=== PATIENT | female | born 1980 | race African-American/Black ===

== ENCOUNTER 2016-12-29 05:33 | Day surgery (SDC) | payer MEDICAID ==
[2016-12-26 09:20] LABS: HEMATOCRIT 36.9 % (36.0-47.0); HEMOGLOBIN 12.2 g/dL (12.0-15.5); HGB HCT DIFFERENCE -0.3; MEAN CORPUSCULAR HEMOGLOBIN 30.1 pg (27.0-33.4); MEAN CORPUSCULAR VOLUME 91 fl (80-97); RED BLOOD COUNT 4.05 10^6/uL (3.72-5.28); WHITE BLOOD COUNT 6.8 10^3/uL (4.0-10.5)
--- NOTE | 2016-12-26 11:02 | EKG REPORT ---
SEVERITY:- NORMAL ECG - SINUS RHYTHM : Confirmed by: Gris Arteaga 26-Dec-2016 11:01:42
[~2016-12-29 05:33] MED LIST: CLINDAMYCIN 900 MG/D5W RTU 50 ML IV PRN; GENTAMICIN SULFATE 100 MG in DEXTROSE 5%-WATER 100.0 ML IV PRN; NORMAL SALINE IV PRN
[2016-12-29] MEDS ORDERED: MIDAZOLAM 2 MG/2 ML INJ ONE (07:00)
[2016-12-29] MEDS ORDERED: EPHEDRINE SULFATE INJ 50 MG/1 ML AMPULE ONE (07:00)
[2016-12-29] MEDS ORDERED: FENTANYL CITRATE INJ/PF 100 MCG/2 ML AMPUL ONE ×2 (07:00→07:01)
[2016-12-29] MEDS ORDERED: PROPOFOL INJ 200 MG/20 ML VIAL IV ONE (07:01)
[2016-12-29] MEDS ORDERED: DEXMEDETOMIDINE INJ 80 MCG/20 ML VIAL IV ONE (07:01)
[2016-12-29] MEDS ORDERED: ACETAMINOPHEN 100 ML IV ONE (07:01)
[2016-12-29] MEDS ORDERED: LIDOCAINE 1%/EPINEPHRINE INJ 20 ML VIAL ONE (07:27)
[2016-12-29] MEDS ORDERED: FENTANYL CITRATE INJ/PF 100 MCG/2 ML AMPUL IV PRN ×3 (07:48)
[2016-12-29] MEDS ORDERED: PROMETHAZINE HCL INJ 25 MG/1 ML VIAL IV PRN (07:48)
[2016-12-29] MEDS ORDERED: DIPHENHYDRAMINE HCL 50 MG/ML VIAL IV PRN (07:48)
[2016-12-29] MEDS ORDERED: MORPHINE SULFATE 10 MG/ML INJ IV PRN (07:48)
[2016-12-29] MEDS ORDERED: MEPERIDINE HCL/PF INJ 25 MG/1 ML DISP.SYRIN IV PRN (07:48)
[2016-12-29] MEDS ORDERED: ONDANSETRON HCL INJ/PF 4 MG/2 ML SDV IV PRN (07:48)
[2016-12-29] MEDS ORDERED: OXYCODONE-ACETAMINOPHEN 5-325 MG TABLET PO PRN (09:34)
[2016-12-29] MEDS ORDERED: IBUPROFEN 800 MG TABLET PO PRN (09:34)
[2016-12-29] MEDS ORDERED: MORPHINE SULFATE 10 MG/ML INJ IM PRN (09:35)
--- NOTE | 2016-12-29 09:38 | OPERATIVE REPORT E ---
Operative Report NAME: ROSE MARIE BLANKENSHIP : 1980 AGE: 36Y DATE OF SURGERY: 12/29/2016 ROOM: PREOPERATIVE DIAGNOSIS: Endometriomas x2. POSTOPERATIVE DIAGNOSIS: Endometriomas x2. PROCEDURE: Surgical excision of bilateral endometriomas. SURGEON: COLLETTE BOUCHER M.D. ANESTHESIA: Dr. Beard with general. FINDINGS: There was a 5 cm well circumscribed subcutaneous endometrioma and incorporating the fascia. Clear serosanguineous cyst ruptured during the procedure. This was on the right. On the left, there was a 2 cm circumscribed chocolate cyst consistent with endometrioma, subcutaneous and incorporating the fascia as well. ESTIMATED BLOOD LOSS: 20 mL. SPECIMENS REMOVED: Endometriomas x2. PROCEDURE IN DETAIL: The patient was taken to the operating room, prepared and draped in a normal sterile fashion in a supine position. Approximately 7 mL of lidocaine 1% with epinephrine was injected into both surgical areas. Beginning with the right cyst which was larger, the scalpel was used to excise the skin along the scar and the cyst was palpable through the subcutaneous tissues and this was excised sharply with Chriss and Tara as well as A small amount of blunt dissection. Switched back to the scalpel as there was difficulty with the scar tissue excising with the scissors and at this point, the endometrioma did rupture. This was copiously irrigated and suctioned away. The rest of the cyst was then dissected out following the planes. Scar tissue was very dense, making the excision difficult. Once the endometrioma was free using the sharp dissection of the Banerjee, the rest of the cyst wall was then noted to be a small amount still remaining. This was excised using Banerjee as well until the cyst wall was completed removed. The defect in the fascia was then reapproximated with interrupted sutures of 0 Vicryl and the skin was then closed with 4-0 Vicryl. Attention was then turned to the other cyst on the left and skin incision was made again with a scalpel and the cyst was located using palpation. The cyst was then dissected out sharply with Chriss and Tara. The chocolate cyst unfortunately also ruptured on this side and this was also copiously irrigated and suctioned away. The rest of the cyst wall was removed using Chriss. Once this was removed, the defect in the fascia was then closed with 0 Vicryl once more. The skin was then closed at the cyst incision with 4-0 Vicryl. The patient tolerated the procedure well. Sponge, lap, and needle counts were correct x2. The patient was taken to recovery in stable condition. DICTATING PHYSICIAN: COLLETTE BOUCHER M.D. [id number] PHY#: [id number] ID: [id number] JOB#: [id number] ACCT: [id number] cc:COLLETTE BOUCHER M.D. >
[2016-12-29 11:38] VITALS: BP 109/74
[2016-12-29] MEDS ORDERED: ONDANSETRON HCL INJ/PF 4 MG/2 ML SDV ONE (14:34)
[2016-12-29] MEDS ORDERED: KETOROLAC TROMETHAMINE 60 MG/2 ML SDV ONE (14:34)
[2016-12-29] MEDS ORDERED: METOCLOPRAMIDE HCL INJ/PF 10 MG/2 ML SDV ONE (14:34)
[2016-12-29] MEDS ORDERED: LIDOCAINE 2% INJ-PF (20 MG/ML) 10 ML AMPUL ONE (14:34)
== END 2016-12-29 11:30 | disposition home or self-care (01) ==
LOC: OROUT 05:33
PROVIDERS: ATTEND Obstetrics & Gynecology
PROC: 0JB80ZX Excision of Abdomen Subcutaneous Tissue and Fascia, Open Approach, Diagnostic (ICD-10-PCS; principal; 2016-12-29 07:30)
DX: N80.9 Endometriosis, unspecified (principal); L72.8 Other follicular cysts of the skin and subcutaneous tissue; E11.9 Type 2 diabetes mellitus without complications; Z79.4 Long term (current) use of insulin; Z88.0 Allergy status to penicillin
CPT/HCPCS: 93005; 36415; 82962; 85027; 81025; 88305 ×2; 93010; 22900; J2250; J3490 ×4; J1885; J3010; J1580; J2765; J2405; J2704; J0131; 802

== ENCOUNTER 2017-02-22 11:04 | Emergency (ER) | payer MEDICAID ==
[2017-02-22 11:25] VITALS: BP 106/78
--- NOTE | 2017-02-22 12:16 | ER Document Report ---
HPI - HPI Patient complains to provider of: skin complaint Pain Level: 0 Context: He is a 36-year-old female presents emergency Department complaining of dry skin. Patient states that she's a couple spots on her skin for about a month that come and go. she uses Dial hand soap and does not use a moisturizer. She denies any new detergents or anything like that. She states that they're nonpainful, remain the same in size until they heal her go away. Not draining. Past medical history significant for type I diabetes on insulin, endometriosis. PCP is Alex - REPRODUCTIVE Reproductive: DENIES: : - DERM Skin Color: Normal Past Medical History - Social History Smoking Status: Current Every Day Smoker Family History: Reviewed & Not Pertinent Patient has suicidal ideation: No Patient has homicidal ideation: No - Past Medical History Cardiac Medical History: Denies: Hx Coronary Artery Disease, Hx Heart Attack, Hx Hypertension Pulmonary Medical History: Denies: Hx Asthma, Hx Bronchitis, Hx COPD, Hx Pneumonia Neurological Medical History: Denies: Hx Cerebrovascular Accident, Hx Seizures Endocrine Medical History: Reports: Hx Diabetes Mellitus Type 1 Renal/ Medical History: Denies: Hx Peritoneal Dialysis GI Medical History: Reports: Hx Gastritis. Denies: Hx Hepatitis, Hx Hiatal Hernia, Hx Ulcer Musculoskeltal Medical History: Denies Hx Arthritis Psychiatric Medical History: Reports: Hx Depression Infectious Medical History: Denies: Hx Hepatitis Past Surgical History: Reports: Hx Section, Hx Gynecologic Surgery - colpo, Hx Tubal Ligation. Denies: Hx Hysterectomy, Hx Mastectomy, Hx Open Heart Surgery, Hx Pacemaker - Immunizations Immunizations up to date: Yes Hx Diphtheria, Pertussis, Tetanus Vaccination: Yes Vertical Provider Document - CONSTITUTIONAL Agree With Documented VS: Yes Exam Limitations: No Limitations General Appearance: WD/WN, No Apparent Distress - INFECTION CONTROL TRAVEL OUTSIDE OF THE [place] IN LAST 30 DAYS: No - RESPIRATORY O2 Sat by Pulse Oximetry: 100 - DERM Integumentary: Warm, Dry - evidence of dry spots covered with makeup Course - Re-evaluation Re-evalutation: 02/22/17 12:17 Patient complaint today is related to dry skin due to current skin carotene. Patient educated on use of proper skin care products that are available any over -the-counter drugstore. Patient expressed understanding and is stable for discharge. - Vital Signs Vital signs: Temp Pulse Resp BP Pulse Ox 98.3 F 88 14 106/78 100 02/22/17 11:23 02/22/17 11:23 02/22/17 11:23 02/22/17 11:23 02/22/17 11:23 Discharge - Discharge Clinical Impression: Dry skin Condition: Good Disposition: HOME, SELF-CARE Additional Instructions: Your complaint today is related to your current skincare routine. Stop using Dial hand soap Please be sure to use specific facial cleanser followed by facial moisturizer daily. Any other soaps are to harsh for your facial skin. Referrals: JOSE D BUCKLEY MD [ACTIVE STAFF] - Follow up as needed
== END 2017-02-22 12:16 | disposition home or self-care (01) ==
LOC: ER 11:04
DX: L85.3 Xerosis cutis (principal); R21 Rash and other nonspecific skin eruption; F17.200 Nicotine dependence, unspecified, uncomplicated
CPT/HCPCS: 99282

== ENCOUNTER 2017-06-27 22:07 | Observation (INO) | payer MEDICAID ==
[2017-06-28 00:41] LABS: ABSOLUTE LYMPHOCYTES (AUTO) 0.5 10^3/uL (0.5-4.7); ABSOLUTE MONOCYTES (AUTO) 0.2 10^3/uL (0.1-1.4); BASOPHILS % (AUTO) 0.3 % (0-2); EOSINOPHILS % (AUTO) 0.1 % (0-6); HEMATOCRIT 41.7 % (36.0-47.0); HGB HCT DIFFERENCE 0.3; LYMPHOCYTES % (AUTO) 5.5 % (13-45); MEAN CORPUSCULAR HEMOGLOBIN 31.2 pg (27.0-33.4); MEAN CORPUSCULAR HGB CONC 33.5 g/dL (32.0-36.0); MEAN CORPUSCULAR VOLUME 93 fl (80-97); MONOCYTES % (AUTO) 2.1 % (3-13); RED BLOOD COUNT 4.48 10^6/uL (3.72-5.28); RED CELL DISTRIBUTION WIDTH 13.7 % (11.5-14.0); WHITE BLOOD COUNT 9.8 10^3/uL (4.0-10.5)
[2017-06-28 00:58] LABS: ALANINE AMINOTRANSFERASE 26 U/L (9-52); ALKALINE PHOSPHATASE 118 U/L (38-126); ASPARTATE AMINO TRANSFERASE 28 U/L (14-36); BILIRUBIN,DIRECT 0.4 mg/dL (0.0-0.4); BILIRUBIN,TOTAL 0.9 mg/dL (0.2-1.3); BLOOD UREA NITROGEN 20 mg/dL (7-20); CALCIUM 9.8 mg/dL (8.4-10.2)
[2017-06-28] MEDS ORDERED: NORMAL SALINE 1000 ML 2,000 ML IV ONE (00:59)
[2017-06-28] MEDS ORDERED: ONDANSETRON HCL INJ/PF 4 MG/2 ML SDV IV ONE (01:00)
[2017-06-28 01:01] LABS: LIPASE < 10.0 U/L (23-300)
--- NOTE | 2017-06-28 01:07 | ER Document Report ---
ED General - General Chief Complaint: Nausea/Vomiting/Diarrhea Stated Complaint: VOMITING Time Seen by Provider: 06/28/17 00:36 Cannot obtain history due to: Uncooperative, Altered mental status Notes: Patient is a 37-year-old female with past medical history of insulin-dependent diabetes who presents with 12 hours of nausea, vomiting and diarrhea as well as lethargy. Patient is a very difficult historian time of arrival stating that hurts to talk and is unwilling to provide many details of what resulted in her come to the emergency department today. Her boyfriend at the bedside states that she did discontinue her insulin pump 3 days ago but had still been administering herself insulin. Patient does have a prior history of DKA and states that this often presents with symptoms similar to today. She has not seen a primary care doctor regarding today's concerns. TRAVEL OUTSIDE OF THE [place] IN LAST 30 DAYS: No - Related Data Allergies/Adverse Reactions: Penicillins Allergy (Mild, Verified 06/27/17 23:27) rash Past Medical History - General Information source: Patient - Social History Smoking Status: Never Smoker Frequency of alcohol use: None Drug Abuse: None Lives with: Spouse/Significant other Family History: Reviewed & Not Pertinent - Past Medical History Cardiac Medical History: Denies: Hx Coronary Artery Disease, Hx Heart Attack, Hx Hypertension Pulmonary Medical History: Denies: Hx Asthma, Hx Bronchitis, Hx COPD, Hx Pneumonia Neurological Medical History: Denies: Hx Cerebrovascular Accident, Hx Seizures Endocrine Medical History: Reports: Hx Diabetes Mellitus Type 1 Renal/ Medical History: Denies: Hx Peritoneal Dialysis GI Medical History: Reports: Hx Gastritis. Denies: Hx Hepatitis, Hx Hiatal Hernia, Hx Ulcer Musculoskeltal Medical History: Denies Hx Arthritis Psychiatric Medical History: Reports: Hx Depression Infectious Medical History: Denies: Hx Hepatitis Past Surgical History: Reports: Hx Section, Hx Gynecologic Surgery - colpo, Hx Tubal Ligation. Denies: Hx Hysterectomy, Hx Mastectomy, Hx Open Heart Surgery, Hx Pacemaker - Immunizations Immunizations up to date: Yes Hx Diphtheria, Pertussis, Tetanus Vaccination: Yes Review of Systems - Review of Systems Notes: Constitutional: Negative for fever. HENT: Negative for sore throat. Eyes: Negative for visual changes. Cardiovascular: Negative for chest pain. Respiratory: Negative for shortness of breath. Gastrointestinal: Positive for abdominal pain, vomiting, diarrhea Genitourinary: Negative for dysuria. Musculoskeletal: Negative for back pain. Skin: Negative for rash. Neurological: Negative for headaches, weakness or numbness. 10 point ROS negative except as marked above and in HPI. Physical Exam - Vital signs Vitals: Temp Pulse Resp BP Pulse Ox 98.0 F 103 H 16 133/87 H 99 06/27/17 23:28 06/27/17 23:28 06/27/17 23:28 06/27/17 23:28 06/27/17 23:28 Interpretation: Tachycardic Notes: PHYSICAL EXAMINATION: GENERAL: Somewhat lethargic but does respond to questions when pressed. GCS 15. HEAD: Atraumatic, normocephalic. EYES: Pupils equal round and reactive to light, extraocular movements intact, sclera anicteric, conjunctiva are normal. ENT: nares patent, oropharynx clear without exudates. Dry mucous membranes. NECK: Normal range of motion, supple without lymphadenopathy LUNGS: Breath sounds clear to auscultation bilaterally and equal. No wheezes rales or rhonchi. HEART: Regular tachycardia without murmurs ABDOMEN: Soft, diffuse mild tenderness without any focal rebound or guarding, normoactive bowel sounds. No guarding, no rebound. No masses appreciated. EXTREMITIES: Normal range of motion, no pitting or edema. No cyanosis. NEUROLOGICAL: No focal neurological deficits. Moves all extremities spontaneously and on command. PSYCH: Normal mood, normal affect. SKIN: Warm, Dry, normal turgor, no rashes or lesions noted. Course - Re-evaluation Re-evalutation: 06/28/17 01:05 Patient presents ill in appearance, tachycardic, with vomiting and diarrhea. She is lethargic but does respond to questions. No focal abdominal tenderness. Appears clinically dehydrated. High level of concern for DKA in the setting of vomiting and diarrhea. Given her depressed mental status, tachycardia, high level of concern for DKA she is critical at this time and will require frequent reassessments 0125-patient has had an additional episode of vomiting. She continues to appear ill, somewhat lethargic but continues respond appropriate questions. 06/28/17 01:48 Patient's labs do demonstrate findings consistent with acute DKA. She remains lethargic but does respond to questions. She remains mildly tachycardic current heart rate of 103. No hypotension. Will initiate insulin infusion 0.14 U/kg/h. Patient has received 2 L IV fluids and a third will be ordered. Her potassium is at a range will I will begin potassium infusion at the same time of insulin infusion. She will require admission to the hospital. I have paged Dr. Johnson for admission. Will continue to monitor closely 06/28/17 02:24 I discussed this case with Dr. Johnson who agrees to admit the patient. On reassessment she continues to be somewhat lethargic but is talking more appropriately. Will continue to reassess 06/28/17 03:36 Heart rate is improving. Rate 93 at this time. Patient continues respond to questions appropriately. Will transfer to the floor shortly - Vital Signs Vital signs: Temp Pulse Resp BP Pulse Ox 98.0 F 103 H 11 L 131/86 H 100 06/27/17 23:28 06/27/17 23:28 06/28/17 02:33 06/28/17 02:33 06/28/17 02:33 - Laboratory Result Diagrams: 06/28/17 00:26 06/28/17 00:26 Laboratory results interpreted by me: 06/27/17 06/28/17 06/28/17 23:31 00:26 00:26 Seg Neutrophils % 92.0 H Lymphocytes % 5.5 L Monocytes % 2.1 L Absolute Neutrophils 9.0 H VBG pH Carbon Dioxide 21 L Anion Gap 20 H Glucose 406 H* POC Glucose 379 H Total Protein 9.0 H Lipase < 10.0 L Urine Glucose (UA) Urine Ketones Urine Ascorbic Acid 06/28/17 06/28/17 06/28/17 00:46 01:25 02:27 Seg Neutrophils % Lymphocytes % Monocytes % Absolute Neutrophils VBG pH 7.26 L Carbon Dioxide Anion Gap Glucose POC Glucose 334 H Total Protein Lipase Urine Glucose (UA) 150 H Urine Ketones 80 H Urine Ascorbic Acid 20 H Critical Care Note - Critical Care Note Total time excluding time spent on procedures (mins): 38 Comments: Critical care time spent obtaining history from patient or surrogate, discussions with consultants, development of treatment plan with patient or surrogate, evaluation of patient's response to treatment, examination of patient , ordering and performing treatments and interventions, ordering and review of laboratory studies, re-evaluation of patient's condition, ordering and review of radiographic studies and review of old charts Discharge - Discharge Clinical Impression: Diabetic ketoacidosis Qualifiers: Diabetes mellitus type: type 1 Diabetes mellitus complication detail: without coma Qualified Code(s): E10.10 - Type 1 diabetes mellitus with ketoacidosis without coma Nausea and vomiting Qualifiers: Vomiting type: unspecified Vomiting Intractability: intractable Qualified Code( s): R11.2 - Nausea with vomiting, unspecified Condition: Fair Disposition: ADMITTED INPATIENT Admitting Provider: Ryanmn Unit Admitted: [facility]
[2017-06-28 01:08] LABS: CARBON DIOXIDE 21 mmol/L (22-30); CHLORIDE 101 mmol/L (98-107); POTASSIUM 4.5 mmol/L (3.6-5.0); SODIUM 142.4 mmol/L (137-145)
[2017-06-28 01:24] LABS: ANION GAP 20 (5-19)
[2017-06-28 01:33] LABS: APPEARANCE,URINE CLEAR; BILIRUBIN,URINE NEGATIVE (NEGATIVE); GLUCOSE, URINE 150 mg/dL (NEGATIVE); KETONES,URINE 80 mg/dL (NEGATIVE); LEUKOCYTE ESTERASE,URINE NEGATIVE (NEGATIVE); NITRITE,URINE NEGATIVE (NEGATIVE); PROTEIN,URINE NEGATIVE (NEGATIVE); URINE SPECIFIC GRAVITY 1.034; UROBILINOGEN,URINE NEGATIVE mg/dL (<2.0)
[2017-06-28 01:33] LABS: VENOUS BLOOD BASE EXCESS -4.9 mmol/L; VENOUS BLOOD HCO3 22.6 mmol/L (20-32); VENOUS BLOOD PCO2 51.7 mmHg (35-63); VENOUS BLOOD PH 7.26 (7.30-7.42)
[2017-06-28] MEDS ORDERED: INSULIN REG, HUMAN 100 UNIT/ML 3 ML VIAL (PYX) IV ONE (01:47)
[2017-06-28] MEDS ORDERED: POTASSI CL 20 MEQ/50 ML RIDER 50 ML IV ONE (01:47)
[2017-06-28] MEDS ORDERED: NORMAL SALINE 1000 ML 1,000 ML IV ONE (01:47)
[2017-06-28] MEDS ORDERED: DEXTROSE 50%-WATER SYRINGE 25 GM/50 ML DOSE IV PRN ×2 (05:35→10:06)
[2017-06-28] MEDS ORDERED: INSULIN, REGULAR 100 UNIT/100 ML NORMAL SALINE IV PRN ×2 (05:35)
[2017-06-28] MEDS ORDERED: GLUCAGON,HUMAN RECOMB 1 MG INJ IM PRN ×2 (05:35→10:06)
[2017-06-28] MEDS ORDERED: DEXTROSE 40% GEL 15 GM TUBE PO PRN ×2 (05:35→10:06)
[2017-06-28] MEDS ORDERED: DEXTROSE 50%-WATER SYRINGE 12.5 GM/25 ML DOSE IV PRN ×2 (05:35→10:06)
[2017-06-28] MEDS ORDERED: DEXTROSE 40% GEL 15 GM TUBE X 2 PO PRN ×2 (05:35→10:06)
[2017-06-28] MEDS ORDERED: DEXTROSE 5%-1/2 NORMAL SALINE 1,000 ML IV PRN (05:37)
[2017-06-28 07:47] LABS: ALANINE AMINOTRANSFERASE 23 U/L (9-52); ALBUMIN 3.6 g/dL (3.5-5.0); ALKALINE PHOSPHATASE 91 U/L (38-126); ANION GAP 10 (5-19); ASPARTATE AMINO TRANSFERASE 16 U/L (14-36); BILIRUBIN,DIRECT 0.3 mg/dL (0.0-0.4); BILIRUBIN,TOTAL 0.6 mg/dL (0.2-1.3); BLOOD UREA NITROGEN 18 mg/dL (7-20); CALCIUM 8.5 mg/dL (8.4-10.2); CARBON DIOXIDE 20 mmol/L (22-30); CHLORIDE 111 mmol/L (98-107); CREATININE RESULT 0.59 mg/dL (0.52-1.25); GLUCOSE 159 mg/dL (75-110); SODIUM 141.1 mmol/L (137-145); TOTAL PROTEIN 6.5 g/dL (6.3-8.2)
[2017-06-28] MEDS ORDERED: ONDANSETRON HCL INJ/PF 4 MG/2 ML SDV ONE (09:48)
[2017-06-28] MEDS ORDERED: ONDANSETRON HCL INJ/PF 4 MG/2 ML SDV IV PRN (10:04)
[2017-06-28] MEDS ORDERED: INSULIN GLARGINE HUM REC ANLOG 20 UNIT SUBCUT SCH (11:00)
[2017-06-28 11:20] LABS: ALANINE AMINOTRANSFERASE 24 U/L (9-52); ALBUMIN 3.6 g/dL (3.5-5.0); ALKALINE PHOSPHATASE 87 U/L (38-126); ANION GAP 9 (5-19); ASPARTATE AMINO TRANSFERASE 15 U/L (14-36); BILIRUBIN,DIRECT 0.2 mg/dL (0.0-0.4); BILIRUBIN,TOTAL 0.5 mg/dL (0.2-1.3); BLOOD UREA NITROGEN 17 mg/dL (7-20); CALCIUM 8.6 mg/dL (8.4-10.2); CARBON DIOXIDE 23 mmol/L (22-30); CHLORIDE 108 mmol/L (98-107); CREATININE RESULT 0.58 mg/dL (0.52-1.25); GLUCOSE 101 mg/dL (75-110); POTASSIUM 3.9 mmol/L (3.6-5.0); SODIUM 139.7 mmol/L (137-145); TOTAL PROTEIN 6.6 g/dL (6.3-8.2)
[2017-06-28] MEDS: INSULIN LISPRO 100 UNIT/ML 3 ML VIAL SUBCUT PRN ×3 (13:33→21:48)
[2017-06-28] MEDS ORDERED: INSULIN GLARGINE,HUM.REC.ANLOG 1,000 UNIT/10 ML UNIT SUBCUT ONE (13:35)
[2017-06-28 15:04] LABS: ALANINE AMINOTRANSFERASE 19 U/L (9-52); ALBUMIN 3.6 g/dL (3.5-5.0); ALKALINE PHOSPHATASE 83 U/L (38-126); ANION GAP 14 (5-19); ASPARTATE AMINO TRANSFERASE 15 U/L (14-36); BILIRUBIN,DIRECT 0.3 mg/dL (0.0-0.4); BILIRUBIN,TOTAL 0.6 mg/dL (0.2-1.3); BLOOD UREA NITROGEN 17 mg/dL (7-20); CALCIUM 8.5 mg/dL (8.4-10.2); CARBON DIOXIDE 20 mmol/L (22-30); CHLORIDE 105 mmol/L (98-107); CREATININE RESULT 0.63 mg/dL (0.52-1.25); GLUCOSE 190 mg/dL (75-110); SODIUM 138.6 mmol/L (137-145); TOTAL PROTEIN 6.4 g/dL (6.3-8.2)
--- NOTE | 2017-06-28 16:12 | PDOC H&P ---
History of Present Illness Admission Date/PCP: 06/28/17 05:11 History of Present Illness: ROSE MARIE BLANKENSHIP is a 37 year old female, She has type 1 diabetes mellitus, she was on insulin pump, she came to emergency room for evaluation of lethargy, vomiting, abdominal pain, in the emergency room she was found to be in diabetic ketoacidosis.The venous pH was 7.26, anion gap was 20 Past Medical History Endocrine Medical History: Reports: Diabetes Mellitus Type 1 Psychiatric Medical History: Reports: Depression Hematology: Reports: Anemia - with /no meds Past Surgical History Past Surgical History: Reports: 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, Section , Tubal Ligation Social History Lives with: Spouse/Significant other Smoking Status: Smoker,Current Status Unk Frequency of Alcohol Use: Occasional Hx Recreational Drug Use: No Drugs: Marijuana Hx Prescription Drug Abuse: No Family History Family History: Reviewed & Not Pertinent Parental Family History Reviewed: Yes Children Family History Reviewed: Yes Sibling(s) Family History Reviewed.: Yes Medication/Allergy Home Medications: Insulin Glargine,Hum.rec.anlog [Lantus] 20 units SUBCUT QAM 09/23/11 Insulin Aspart [Novolog Flexpen] 0 unit SUBCUT .SLD SCALE 06/28/17 Allergies/Adverse Reactions: Penicillins Allergy (Mild, Verified 06/27/17 23:27) rash Review of Systems Constitutional: ABSENT: chills, fever(s), headache(s), weight gain, weight loss Eyes: ABSENT: visual disturbances Ears: ABSENT: hearing changes Cardiovascular: ABSENT: chest pain, dyspnea on exertion, edema, orthropnea, palpitations Respiratory: ABSENT: cough, hemoptysis Gastrointestinal: PRESENT: diarrhea, vomiting Genitourinary: ABSENT: dysuria, hematuria Musculoskeletal: ABSENT: joint swelling Integumentary: ABSENT: rash, wounds Neurological: PRESENT: confusion Psychiatric: ABSENT: anxiety, depression, homidical ideation, suicidal ideation Endocrine: ABSENT: cold intolerance, heat intolerance, menstrual abnormalities, polydipsia, polyuria Hematologic/Lymphatic: ABSENT: easy bleeding, easy bruising, lymphadenopathy Physical Exam Vital Signs: Temp Pulse Resp BP Pulse Ox 98.7 F 102 H 18 98/60 L 100 06/28/17 14:56 06/28/17 14:56 06/28/17 14:56 06/28/17 14:56 06/28/17 14:56 Intake & Output 06/27/17 06/28/17 06/29/17 06:59 06:59 06:59 Intake Total 158 500 Output Total 0 Balance 158 500 General appearance: PRESENT: no acute distress Head exam: PRESENT: atraumatic, normocephalic Eye exam: PRESENT: conjunctiva pink, EOMI, PERRLA Ear exam: PRESENT: normal external ear exam Mouth exam: PRESENT: moist, tongue midline Neck exam: PRESENT: full ROM Respiratory exam: PRESENT: clear to auscultation lata Cardiovascular exam: PRESENT: RRR, +S1, +S2 Vascular exam: PRESENT: normal capillary refill GI/Abdominal exam: PRESENT: normal bowel sounds, soft Rectal exam: PRESENT: deferred Neurological exam: PRESENT: alert, CN II-XII grossly intact Psychiatric exam: PRESENT: appropriate affect, normal mood Skin exam: PRESENT: dry, intact, warm. ABSENT: cyanosis, rash Results Laboratory Results: 06/28/17 13:50 06/28/17 06/28/17 06/28/17 06:42 10:26 13:50 Sodium 141.1 139.7 138.6 Potassium 4.0 3.9 4.0 Chloride 111 H 108 H 105 Carbon Dioxide 20 L 23 20 L Anion Gap 10 9 14 BUN 18 17 17 Creatinine 0.59 0.58 0.63 Est GFR ( Amer) > 60 > 60 > 60 Est GFR (Non-Af Amer) > 60 > 60 > 60 Glucose 159 H 101 190 H Calcium 8.5 8.6 8.5 Total Bilirubin 0.6 0.5 0.6 AST 16 15 15 ALT 23 24 19 Alkaline Phosphatase 91 87 83 Total Protein 6.5 6.6 6.4 Albumin 3.6 3.6 3.6 Assessment & Plan - Diagnosis (1) Diabetic ketoacidosis Qualifiers: Diabetes mellitus type: type 1 Diabetes mellitus complication detail: without coma Qualified Code(s): E10.10 - Type 1 diabetes mellitus with ketoacidosis without coma Is this a current diagnosis for this admission?: YesPlan: She is admitted for the management of DKA. She is on insulin drip, IV fluids with normal saline, insulin drip will continue until the anion gap is less than 12
[2017-06-28 19:12] LABS: ALANINE AMINOTRANSFERASE 20 U/L (9-52); ALBUMIN 3.7 g/dL (3.5-5.0); ALKALINE PHOSPHATASE 72 U/L (38-126); ANION GAP 7 (5-19); ASPARTATE AMINO TRANSFERASE 17 U/L (14-36); BILIRUBIN,DIRECT 0.2 mg/dL (0.0-0.4); BILIRUBIN,TOTAL 0.6 mg/dL (0.2-1.3); BLOOD UREA NITROGEN 16 mg/dL (7-20); CALCIUM 8.9 mg/dL (8.4-10.2); CARBON DIOXIDE 26 mmol/L (22-30); CHLORIDE 105 mmol/L (98-107); CREATININE RESULT 0.69 mg/dL (0.52-1.25); GLUCOSE 164 mg/dL (75-110); POTASSIUM 3.9 mmol/L (3.6-5.0); SODIUM 137.7 mmol/L (137-145); TOTAL PROTEIN 6.6 g/dL (6.3-8.2)
[2017-06-28 22:31] LABS: ALANINE AMINOTRANSFERASE 16 U/L (9-52); ALBUMIN 3.3 g/dL (3.5-5.0); ALKALINE PHOSPHATASE 71 U/L (38-126); ANION GAP 8 (5-19); ASPARTATE AMINO TRANSFERASE 20 U/L (14-36); BILIRUBIN,DIRECT 0.3 mg/dL (0.0-0.4); BILIRUBIN,TOTAL 0.7 mg/dL (0.2-1.3); BLOOD UREA NITROGEN 18 mg/dL (7-20); CALCIUM 8.7 mg/dL (8.4-10.2); CARBON DIOXIDE 24 mmol/L (22-30); CHLORIDE 105 mmol/L (98-107); CREATININE RESULT 0.58 mg/dL (0.52-1.25); GLUCOSE 194 mg/dL (75-110); SODIUM 137.4 mmol/L (137-145); TOTAL PROTEIN 6.4 g/dL (6.3-8.2)
[2017-06-29 02:27] LABS: ALANINE AMINOTRANSFERASE 23 U/L (9-52); ALBUMIN 3.2 g/dL (3.5-5.0); ALKALINE PHOSPHATASE 67 U/L (38-126); ANION GAP 6 (5-19); ASPARTATE AMINO TRANSFERASE 20 U/L (14-36); BILIRUBIN,DIRECT 0.3 mg/dL (0.0-0.4); BILIRUBIN,TOTAL 0.5 mg/dL (0.2-1.3); BLOOD UREA NITROGEN 17 mg/dL (7-20); CALCIUM 8.5 mg/dL (8.4-10.2); CARBON DIOXIDE 26 mmol/L (22-30); CHLORIDE 108 mmol/L (98-107); CREATININE RESULT 0.57 mg/dL (0.52-1.25); GLUCOSE 84 mg/dL (75-110); POTASSIUM 3.4 mmol/L (3.6-5.0); SODIUM 140.4 mmol/L (137-145)
[2017-06-29] MEDS ORDERED: INSULIN GLARGINE,HUM.REC.ANLOG 300 UNIT/3 ML INSULN.PEN SUBCUT SCH (08:00)
[2017-06-29 09:56] LABS: GLUCOSE 406 mg/dL (75-110)
--- NOTE | 2017-06-29 10:46 | Physician Advisory Note ---
Physician Advisor ProgressNote .: Pursuant to the plan for [facility], I have reviewed the medical record for this patient. Physician Advisor Statement: Please consider documentin. "underweight with protein-calorie malnutrition [state mild, mod, or severe] with BMI 16.0, DM-1 w/____[?wt loss, ?appetite loss, ]" [if possible, give specifics on intake, wt loss, loss of SQ fat & muscle mass, diminished hand people manager strength, & clinical importance such as (A) nutritional assessment ordered, (B) modified diet or supplements ordered, (C) additional labs ordered, (D) prolonged wound healing time, (E) delayed infxn clearance] 2. Status issues - see below. Status: Pt came in w/N/V/D/abd pain, bicarb 21, A.gap 20, pH 7.26, glc 406, w/AMS, dry mucosae, appropriately as Outpt Obs. Was started on insulin gtt/IVF boluses in ED. Insulin gtt was stopped per nurse, along w/IVF, at 09:58 on 06/28. She was given Lantus 20 units at 13:35 on 06/28. Nurse documented her last fill hx for Lantus was 01/08/17 for a 30 day supply, which makes one suspect she has not been taking much insulin at all for many months now. Her glucose dropped to 50 at 06:15 on 06/29, coming up to 94 after 2 servings of apple juice. Since then, she has again received another 20 units Lantus. Given this, her risk for serious hypoglycemia recurrence in the next 24 hours may be quite high. If attending is concerned about pt's risks being high for recurrent serious hypoglycemia in the next 24 hours, or about her ongoing tachycardia, or other clinical concerns that make him not consider her safe for d/c on 06/29 but need to monitor closely for at least another night, and documents those concerns, then pt should be appropriate to change to Inpatient this PM. Thanks! TIMMY
[2017-06-29 12:04] VITALS: BP 116/84
--- NOTE | 2017-06-29 19:10 | PDOC DISCHARGE SUMMARY ---
General - Admit/Disc Date/PCP Admission Date/Primary Care Provider: 06/28/17 05:11 Discharge Date: 06/29/17 - Discharge Diagnosis (1) Diabetic ketoacidosis Is this a current diagnosis for this admission?: Yes - Additional Information Home Medications: Insulin Glargine,Hum.rec.anlog [Lantus] 20 units SUBCUT QAM 09/23/11 Insulin Aspart [Novolog Flexpen] 0 unit SUBCUT .SLD SCALE 06/28/17 History of Present Illness History of Present Illness: ROSE MARIE BLANKENSHIP is a 37 year old female, She has type 1 diabetes mellitus, she was on insulin pump, she came to emergency room for evaluation of lethargy, vomiting, abdominal pain, in the emergency room she was found to be in diabetic ketoacidosis.The venous pH was 7.26, anion gap was 20 Hospital Course Hospital Course: Patient was admitted yesterday for the management of diabetic ketoacidosis partly due to noncompliance with her medications and diabetic regimen. She was admitted and treated with insulin infusion with correlation of the anion gap she was taken off insulin drip within 24 hours of admission, she is stable and ready for discharge today. Physical Exam Vital Signs: Temp Pulse Resp BP Pulse Ox 98.7 F 82 20 116/84 99 06/29/17 13:08 06/29/17 13:08 06/29/17 13:08 06/29/17 13:08 06/29/17 13:08 Intake & Output 06/28/17 06/29/17 06/30/17 06:59 06:59 06:59 Intake Total 158 1441 355 Output Total 0 Balance 158 1441 355 General appearance: PRESENT: no acute distress, well-developed, well-nourished Head exam: PRESENT: atraumatic, normocephalic Eye exam: PRESENT: conjunctiva pink, EOMI, PERRLA Ear exam: PRESENT: normal external ear exam Mouth exam: PRESENT: moist, tongue midline Neck exam: PRESENT: full ROM Cardiovascular exam: PRESENT: RRR, +S1, +S2 Pulses: PRESENT: normal dorsalis pedis pul, +2 pedal pulses bilateral Vascular exam: PRESENT: normal capillary refill GI/Abdominal exam: PRESENT: normal bowel sounds, soft Rectal exam: PRESENT: deferred Neurological exam: PRESENT: alert, awake, oriented to person, oriented to place , oriented to time, oriented to situation, CN II-XII grossly intact Psychiatric exam: PRESENT: appropriate affect, normal mood Skin exam: PRESENT: dry, intact, warm. ABSENT: cyanosis, rash Results Laboratory Results: 06/29/17 01:53 06/28/17 06/28/17 06/29/17 18:47 21:55 01:53 Sodium 137.7 137.4 140.4 Potassium 3.9 4.0 3.4 L Chloride 105 105 108 H Carbon Dioxide 26 24 26 Anion Gap 7 8 6 BUN 16 18 17 Creatinine 0.69 0.58 0.57 Est GFR ( Amer) > 60 > 60 > 60 Est GFR (Non-Af Amer) > 60 > 60 > 60 Glucose 164 H 194 H 84 Calcium 8.9 8.7 8.5 Total Bilirubin 0.6 0.7 0.5 AST 17 20 20 ALT 20 16 23 Alkaline Phosphatase 72 71 67 Total Protein 6.6 6.4 6.0 L Albumin 3.7 3.3 L 3.2 L
== END 2017-06-29 13:18 | disposition home or self-care (01) ==
LOC: ER 22:07 → UNDOADMOB 06-28 02:56 → EH 06-28 02:56 → INTOOBSV 06-28 02:56 → 3W 06-28 04:57 → EH 06-28 04:57 → 3W 06-28 05:11
PROVIDERS: ADMIT Internal Medicine; ATTEND Internal Medicine
DX: E10.10 Type 1 diabetes mellitus with ketoacidosis without coma (principal); Z79.4 Long term (current) use of insulin; Z96.41 Presence of insulin pump (external) (internal); Z91.14 Patient's other noncompliance with medication regimen; R19.7 Diarrhea, unspecified; R41.0 Disorientation, unspecified; F32.9 Major depressive disorder, single episode, unspecified; Z98.51 Tubal ligation status; Z89.422 Acquired absence of other left toe(s)
CPT/HCPCS: 36415 ×2; 82962 ×3; 83690; 84703; 85025; 80053 ×2; 81001; 82803; G0378 ×2; J1815 ×4; J2405; J3480; J7030

== ENCOUNTER 2017-12-16 15:52 | Emergency (ER) | payer OTHER, MEDICAID ==
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
[2017-12-16] MEDS ORDERED: DEXTROSE 40% GEL 15 GM TUBE PO ONE (17:12)
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
[2017-12-16] MEDS ORDERED: IBUPROFEN 800 MG TABLET PO ONE (19:26)
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
[2017-12-16 20:09] VITALS: BP 125/78
== END 2017-12-16 20:09 | disposition home or self-care (01) ==
LOC: ER 15:52
DX: S00.83XA Contusion of other part of head, initial encounter (principal); S20.211A Contusion of right front wall of thorax, initial encounter; S10.91XA Abrasion of unspecified part of neck, initial encounter; V49.40XA Driver injured in collision with unspecified motor vehicles in traffic accident, initial encounter; R10.11 Right upper quadrant pain; R07.9 Chest pain, unspecified; E10.649 Type 1 diabetes mellitus with hypoglycemia without coma; Z88.0 Allergy status to penicillin
CPT/HCPCS: 70450; 71046; 72050; 76705; 82962; 99285

== ENCOUNTER 2018-03-01 16:29 | Emergency (ER) | payer MEDICAID ==
[2018-03-01 16:52] VITALS: BP 128/87
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
[2018-03-01 18:16] LABS: BACTERIA (WET MOUNT) 4+ BACTERIA SEEN; EPITHELIALS (WET MOUNT) 4+ EPITHELIALS SEEN; T.VAGINALIS (WET MOUNT) NO TRICHOMONAS SEEN; WBCS (WET MOUNT) FEW WBCS SEEN; YEAST (WET MOUNT) NO YEAST SEEN
[2018-03-01 18:25] LABS: APPEARANCE,URINE SLIGHTLY-CLOUDY; BILIRUBIN,URINE NEGATIVE (NEGATIVE); COLOR,URINE YELLOW; GLUCOSE, URINE >=500 mg/dL (NEGATIVE); KETONES,URINE NEGATIVE (NEGATIVE); LEUKOCYTE ESTERASE,URINE NEGATIVE (NEGATIVE); NITRITE,URINE NEGATIVE (NEGATIVE); PROTEIN,URINE NEGATIVE (NEGATIVE)
[2018-03-01 19:43] LABS: CHLAM PCR NOT DETECTED (NOT DETECT); GON PCR NOT DETECTED (NOT DETECT)
== END 2018-03-01 18:52 | disposition home or self-care (01) ==
LOC: ER 16:29
DX: Z20.2 Contact with and (suspected) exposure to infections with a predominantly sexual mode of transmission (principal); N76.0 Acute vaginitis; B96.89 Other specified bacterial agents as the cause of diseases classified elsewhere; F17.200 Nicotine dependence, unspecified, uncomplicated; E10.9 Type 1 diabetes mellitus without complications; Z88.0 Allergy status to penicillin
CPT/HCPCS: 81001; 81025; 87210; 87491; 87591; 99283

== ENCOUNTER 2018-07-15 22:37 | Emergency (ER) | payer MEDICAID ==
[2018-07-16 01:47] LABS: BACTERIA (WET MOUNT) 4+ BACTERIA SEEN; EPITHELIALS (WET MOUNT) 4+ EPITHELIALS SEEN; RBCS (WET MOUNT) 1+ RBCS SEEN; T.VAGINALIS (WET MOUNT) NO TRICHOMONAS SEEN; WBCS (WET MOUNT) 4+ WBCS SEEN; YEAST (WET MOUNT) NO YEAST SEEN
[2018-07-16 01:56] LABS: APPEARANCE,URINE CLEAR; BILIRUBIN,URINE NEGATIVE (NEGATIVE); COLOR,URINE YELLOW; GLUCOSE, URINE >=500 mg/dL (NEGATIVE); KETONES,URINE NEGATIVE (NEGATIVE); LEUKOCYTE ESTERASE,URINE MODERATE (NEGATIVE); NITRITE,URINE NEGATIVE (NEGATIVE); PROTEIN,URINE NEGATIVE (NEGATIVE); URINE SPECIFIC GRAVITY 1.031; UROBILINOGEN,URINE NEGATIVE mg/dL (<2.0)
[2018-07-16] MEDS ORDERED: METRONIDAZOLE 500 MG TABLET PO ONE (02:10)
--- NOTE | 2018-07-16 02:13 | ER Document Report ---
ED General - General Chief Complaint: Vaginal Itching Stated Complaint: VAGINAL PROBLEM Time Seen by Provider: 07/16/18 01:03 Notes: Patient is a 38-year-old female with a past medical history of insulin- dependent type 1 diabetes who presents with 2 days of vaginal itching. She states the itching is a constant, mild irritation. States that this feels similar to when she has had yeast infections in the past. She denies any concern for sexually transmitted infections. Nothing seems to improve or worsen her symptoms. She has not seen her doctor regarding today's concerns. She denies any abdominal pain, fever or constitutional symptoms. TRAVEL OUTSIDE OF THE [place] IN LAST 30 DAYS: No - Related Data Allergies/Adverse Reactions: Penicillins Allergy (Mild, Verified 03/01/18 18:50) rash Past Medical History - General Information source: Patient - Social History Smoking Status: Never Smoker Frequency of alcohol use: None Drug Abuse: None Lives with: Family Family History: Reviewed & Not Pertinent Patient has suicidal ideation: No Patient has homicidal ideation: No - Past Medical History Cardiac Medical History: Denies: Hx Coronary Artery Disease, Hx Heart Attack, Hx Hypertension Pulmonary Medical History: Denies: Hx Asthma, Hx Bronchitis, Hx COPD, Hx Pneumonia Neurological Medical History: Denies: Hx Cerebrovascular Accident, Hx Seizures Endocrine Medical History: Reports: Hx Diabetes Mellitus Type 1 Renal/ Medical History: Denies: Hx Peritoneal Dialysis GI Medical History: Reports: Hx Gastritis. Denies: Hx Hepatitis, Hx Hiatal Hernia, Hx Ulcer Musculoskeletal Medical History: Denies Hx Arthritis Psychiatric Medical History: Reports: Hx Depression Infectious Medical History: Denies: Hx Hepatitis Past Surgical History: Reports: Hx Section, Hx Gynecologic Surgery - colpo, Hx Tubal Ligation. Denies: Hx Hysterectomy, Hx Mastectomy, Hx Open Heart Surgery, Hx Pacemaker - Immunizations Immunizations up to date: Yes Hx Diphtheria, Pertussis, Tetanus Vaccination: Yes Review of Systems - Review of Systems Notes: Constitutional: Negative for fever. HENT: Negative for sore throat. Eyes: Negative for visual changes. Cardiovascular: Negative for chest pain. Respiratory: Negative for shortness of breath. Gastrointestinal: Negative for abdominal pain, vomiting or diarrhea. Genitourinary: Negative for dysuria. Positive for vaginal itching Musculoskeletal: Negative for back pain. Skin: Negative for rash. Neurological: Negative for headaches, weakness or numbness. 10 point ROS negative except as marked above and in HPI. Physical Exam - Vital signs Vitals: Temp Pulse Resp BP Pulse Ox 99.4 F 94 14 123/80 100 07/15/18 22:37 07/15/18 22:37 07/15/18 22:37 07/15/18 22:37 07/15/18 22:37 Interpretation: Normal Notes: PHYSICAL EXAMINATION: GENERAL: Well-appearing, well-nourished and in no acute distress. HEAD: Atraumatic, normocephalic. EYES: Pupils equal round and reactive to light, extraocular movements intact, sclera anicteric, conjunctiva are normal. ENT: nares patent, oropharynx clear without exudates. Moist mucous membranes. NECK: Normal range of motion, supple without lymphadenopathy LUNGS: Breath sounds clear to auscultation bilaterally and equal. No wheezes rales or rhonchi. HEART: Regular rate and rhythm without murmurs ABDOMEN: Soft, nontender, normoactive bowel sounds. No guarding, no rebound. No masses appreciated. : Deferred EXTREMITIES: Normal range of motion, no pitting or edema. No cyanosis. NEUROLOGICAL: No focal neurological deficits. Moves all extremities spontaneously and on command. PSYCH: Normal mood, normal affect. SKIN: Warm, Dry, normal turgor, no rashes or lesions noted. Course - Re-evaluation Re-evalutation: 07/16/18 02:11 The patient is a 38-year-old diabetic, insulin dependent female who presents with 2 days of vaginal itching. She denies any pain, vaginal bleeding or vaginal discharge. Denies any concerns for sexual transmitted infections. Was concerned that she may have a yeast infection. Pelvic exam deferred. Patient did self swab, shows findings consistent with bacterial vaginosis. Patient declines empiric treatment for sexually transmitted infections. Urinalysis without evidence of or urinary tract infection. Abdominal exam is benign. Patient denies any symptoms worrisome for pelvic inflammatory disease, tubo-ovarian abscess, or any other life-threatening pathology. At this time will discharge with return precautions and follow-up recommendations. Verbal discharge instructions given a the bedside and opportunity for questions given. Medication warnings reviewed. Patient is in agreement with this plan and has verbalized understanding of return precautions and the need for primary care follow-up in the next 24-72 hours. - Vital Signs Vital signs: Temp Pulse Resp BP Pulse Ox 99.4 F 94 14 123/80 100 07/15/18 22:37 07/15/18 22:37 07/15/18 22:37 07/15/18 22:37 07/15/18 22:37 - Laboratory Laboratory results interpreted by me: 07/16/18 01:26 Urine Glucose (UA) >=500 H Ur Leukocyte Esterase MODERATE H Discharge - Discharge Clinical Impression: Vaginal itching, Bacterial vaginosis Condition: Good Disposition: HOME, SELF-CARE Additional Instructions: You have an overgrowth of natural vaginal bacteria, called bacterial vaginosis. You are being treated with an antibiotic called metronidazole. Do not drink alcohol while taking this medication. Complete all of the antibiotic even if your symptoms have resolved. Return for abdominal pain, vomiting, fever of greater than 101F, or any other symptoms that are worrisome to you. Please follow-up with your MANAGER LAUNDRY or primary care doctor as needed. Prescriptions: Metronidazole [Flagyl 500 mg Tablet] 500 mg PO Q6H #28 tablet Referrals: JOSE D BUCKLEY MD [Primary Care Provider] - Follow up as needed
[2018-07-16 02:20] VITALS: BP 110/66
[2018-07-16 03:05] LABS: CHLAM PCR NOT DETECTED (NOT DETECT); GON PCR NOT DETECTED (NOT DETECT)
== END 2018-07-16 02:19 | disposition home or self-care (01) ==
LOC: ER 22:37
DX: N76.0 Acute vaginitis (principal); B96.89 Other specified bacterial agents as the cause of diseases classified elsewhere; E10.9 Type 1 diabetes mellitus without complications; Z88.0 Allergy status to penicillin
CPT/HCPCS: 99283; 87210; 81025; 81001; 87491; 87591; J3490

== ENCOUNTER 2018-08-04 13:04 | Emergency (ER) | payer MEDICAID ==
[2018-08-04 13:14] VITALS: BP 95/67
--- NOTE | 2018-08-04 13:51 | ER Document Report ---
HPI - HPI Pain Level: 5 - CONSTITUTIONAL Constitutional: DENIES: Fever, Chills - EENT EENT: REPORTS: Sore Throat. DENIES: Ear Pain, Eye problems - NEURO Neurology: DENIES: Headache, Weakness, Vision blurred, Dizzinesss / Vertigo - CARDIOVASCULAR Cardiovascular: DENIES: Chest pain - RESPIRATORY Respiratory: DENIES: Trouble Breathing, Coughing - GASTROINTESTINAL Gastrointestinal: DENIES: Abdominal Pain, Black / Bloody Stools - URINARY Urinary: DENIES: Dysuria, Urgency, Frequency - REPRODUCTIVE Reproductive: DENIES: : - MUSCULOSKELETAL Musculoskeletal: DENIES: Extremity pain Past Medical History - Social History Smoking Status: Current Every Day Smoker Chew tobacco use (# tins/day): No Frequency of alcohol use: None Drug Abuse: None Family History: Reviewed & Not Pertinent Patient has suicidal ideation: No Patient has homicidal ideation: No - Past Medical History Cardiac Medical History: Denies: Hx Coronary Artery Disease, Hx Heart Attack, Hx Hypertension Pulmonary Medical History: Denies: Hx Asthma, Hx Bronchitis, Hx COPD, Hx Pneumonia Neurological Medical History: Denies: Hx Cerebrovascular Accident, Hx Seizures Endocrine Medical History: Reports: Hx Diabetes Mellitus Type 1 Renal/ Medical History: Denies: Hx Peritoneal Dialysis GI Medical History: Reports: Hx Gastritis. Denies: Hx Hepatitis, Hx Hiatal Hernia, Hx Ulcer Musculoskeletal Medical History: Denies Hx Arthritis Psychiatric Medical History: Reports: Hx Depression Infectious Medical History: Denies: Hx Hepatitis Past Surgical History: Reports: Hx Section, Hx Gynecologic Surgery - colpo, Hx Tubal Ligation. Denies: Hx Hysterectomy, Hx Mastectomy, Hx Open Heart Surgery, Hx Pacemaker - Immunizations Immunizations up to date: Yes Hx Diphtheria, Pertussis, Tetanus Vaccination: Yes Vertical Provider Document - INFECTION CONTROL TRAVEL OUTSIDE OF THE [place] IN LAST 30 DAYS: No Course - Vital Signs Vital signs: Temp Pulse Resp BP Pulse Ox 98.1 F 97 16 95/67 L 99 08/04/18 13:12 08/04/18 13:12 08/04/18 13:12 08/04/18 13:12 08/04/18 13:12 Discharge - Discharge Referrals: JOSE D BUCKLEY MD [Primary Care Provider] - Follow up as needed
[2018-08-04] MEDS ORDERED: LORATADINE 10 MG TABLET PO ONE (14:19)
[2018-08-04] MEDS ORDERED: PSEUDOEPHEDRINE HCL 30 MG TABLET PO ONE (14:19)
[2018-08-04] MEDS ORDERED: GUAIFENESIN 600 MG TABLET.SA PO ONE (14:19)
[2018-08-04] MEDS ORDERED: IBUPROFEN 600 MG TABLET PO ONE (14:19)
--- NOTE | 2018-08-04 14:23 | ER Document Report ---
ED ENT - General Chief Complaint: Sore Throat Stated Complaint: SORETHROAT Time Seen by Provider: 08/04/18 13:51 Mode of Arrival: Ambulatory Information source: Patient Notes: 38-year-old female presents to ED for complaint of sore throat cough and congestion for 7 days. Is alert and oriented respirations regular and unlabored speaking in full sentences and walks with a even steady gait. TRAVEL OUTSIDE OF THE [place] IN LAST 30 DAYS: No - HPI Patient complains to provider of: Nose problem, Throat problem Onset: Last week Onset/Duration: Gradual, Persistent Quality of pain: Sharp Severity: Severe Pain Level: 5 Context: Recent Illness Location of pain: Nose, Sinus, Throat Associated symptoms: Cough, Runny nose, Sinus pain, Sinus drainage, Sore throat Similar symptoms previously: Yes Recently seen / treated by doctor: No - Related Data Allergies/Adverse Reactions: Penicillins Allergy (Mild, Verified 08/04/18 13:04) rash Past Medical History - General Information source: Patient - Social History Smoking Status: Current Every Day Smoker Cigarette use (# per day): Yes Chew tobacco use (# tins/day): No Smoking Education Provided: Yes Frequency of alcohol use: None Drug Abuse: None Lives with: Family Family History: Reviewed & Not Pertinent Patient has suicidal ideation: No Patient has homicidal ideation: No - Past Medical History Cardiac Medical History: Reports: None Pulmonary Medical History: Reports: None EENT Medical History: Reports: None Neurological Medical History: Reports: None Endocrine Medical History: Reports: Hx Diabetes Mellitus Type 1 Renal/ Medical History: Reports: None Malignancy Medical History: Reports: None GI Medical History: Reports: Hx Gastritis Musculoskeletal Medical History: Reports None Skin Medical History: Reports None Psychiatric Medical History: Reports: Hx Depression Traumatic Medical History: Reports: None Infectious Medical History: Reports: None Past Surgical History: Reports: Hx Section, Hx Gynecologic Surgery - colpo, Hx Tubal Ligation - Immunizations Immunizations up to date: Yes Hx Diphtheria, Pertussis, Tetanus Vaccination: Yes Review of Systems - Review of Systems Constitutional: No symptoms reported EENT: Nose congestion, Nose discharge, Sinus pressure, Sinus discharge, Throat pain Cardiovascular: No symptoms reported Respiratory: Cough, Short of breath Gastrointestinal: No symptoms reported Genitourinary: No symptoms reported Female Genitourinary: No symptoms reported Musculoskeletal: No symptoms reported Skin: No symptoms reported Hematologic/Lymphatic: No symptoms reported Neurological/Psychological: No symptoms reported -: Yes All other systems reviewed and negative Physical Exam - Vital signs Vitals: Temp Pulse Resp BP Pulse Ox 98.1 F 97 16 95/67 L 99 08/04/18 13:12 08/04/18 13:12 08/04/18 13:12 08/04/18 13:12 08/04/18 13:12 Interpretation: Normal - General General appearance: Appears well, Alert - HEENT Head: Normocephalic, Atraumatic Eyes: Normal Pupils: PERRL Ears: Normal External canal: Normal Tympanic membrane: Normal Sinus: Normal Nasal: Swelling, Clear rhinorrhea Mouth/Lips: Normal Mucous membranes: Normal Pharynx: Post nasal drainage. No: Erythema, Exudate, Peritonsillar abscess, Retropharyngeal abscess, Tonsillar hypertrophy, Uvular edema, Potential airway comprom. Neck: Normal - Respiratory Respiratory status: No respiratory distress Chest status: Nontender Breath sounds: Nonproductive cough Chest palpation: Normal - Cardiovascular Rhythm: Regular Heart sounds: Normal auscultation Murmur: No - Abdominal Inspection: Normal Distension: No distension Bowel sounds: Normal Tenderness: Nontender Organomegaly: No organomegaly - Back Back: Normal, Nontender - Extremities General upper extremity: Normal inspection, Nontender, Normal color, Normal ROM , Normal temperature General lower extremity: Normal inspection, Nontender, Normal color, Normal ROM , Normal temperature, Normal weight bearing. No: Avril's sign - Neurological Neuro grossly intact: Yes Cognition: Normal Orientation: AAOx4 Melinda Coma Scale Eye Opening: Spontaneous Melinda Coma Scale Verbal: Oriented [place] Coma Scale Motor: Obeys Commands Melinda Coma Scale Total: 15 Speech: Normal Motor strength normal: LUE, RUE, LLE, RLE Sensory: Normal - Psychological Associated symptoms: Normal affect, Normal mood - Skin Skin Temperature: Warm Skin Moisture: Dry Skin Color: Normal Course - Re-evaluation Re-evalutation: 08/04/18 16:38 Strep test was negative this was discussed with patient. Patient was treated with Claritin, Sudafed, Mucinex, and ibuprofen for cough cold congestion symptoms. - Vital Signs Vital signs: Temp Pulse Resp BP Pulse Ox 98.1 F 97 16 95/67 L 99 08/04/18 13:12 08/04/18 13:12 08/04/18 13:12 08/04/18 13:12 08/04/18 13:12 Discharge - Discharge Clinical Impression: URI (upper respiratory infection) Qualifiers: URI type: unspecified URI Qualified Code(s): J06.9 - Acute upper respiratory infection, unspecified Condition: Stable Disposition: HOME, SELF-CARE Additional Instructions: SORE THROAT: Sore throats may be caused by viruses, bacteria, or fungi. Most are due to a virus, and must get better on their own. Bacterial sore throats, particularly those due to "strep," need treatment with antibiotics. If an antibiotic is prescribed, be sure to take the medication for a full 10 days. Failure to take the antibiotic can result in complications such as rheumatic fever. Sometimes, an injection of antibiotics is given instead of pills or liquid. This single "shot" is equal in effectiveness to the oral medication. To relieve symptoms, take acetaminophen for pain. Sip clear liquids frequently, or eat popsicles or ice chips. Anesthetic sprays or lozenges may help. Make sure the air in the room is not too dry. Avoid using decongestants or antihistamines. Call the doctor if there is no improvement in two days, or if you have difficulty breathing, increasing throat pain, high fever, rash, or frequent vomiting. UPPER RESPIRATORY ILLNESS: You have a viral infection of the respiratory passages -- a "cold." This common infection causes nasal congestion, drainage, and often sore throat and cough. It is highly contagious. The disease usually lasts about 10 to 14 days. There is no "cure" for the viral infection -- it must run its course. If there is a complication, such as bacterial infection in the nose, sinuses, middle ear, or bronchial tubes, antibiotics may be required. The antibiotics won't affect the virus. Drink plenty of fluids. A humidifier may help. An expectorant medication or decongestant may make you more comfortable. Use acetaminophen or ibuprofen for fever or aches. See the doctor if fever persists over two days, if there is any significant worsening of your symptoms, or if you simply fail to improve as expected. Antihistamines An antihistamine has been prescribed to control your symptoms. Antihistamines are used for many reasons, including itching, watering eyes, runny nose, allergic swelling, hives, and insect stings. Antihistamines may cause drowsiness, especially with the first dose. Do not operate machinery or drive while under the effects of the medication. Other common side effects include dry mouth and eyes. In older persons, antihistamines can occasionally cause urinary retention, constipation, and trouble focusing the eyes. Do not combine the medication with alcohol, or with any other medication without talking to your doctor. DECONGESTANT MEDICATION: A decongestant medicine has been suggested. Often this medicine is combined in the same tablet with an antihistamine or expectorant. This type of medicine is helpful in treating a bad cold or sinus condition, as well as in treatment of the nasal congestion of hay fever. It is not of much benefit for lung infections. Decongestant medicines are related to stimulants. They can cause an increase in blood pressure and heart rate. Persons with heart disease and high blood pressure should not take decongestants without discussing this with the physician. If you develop palpitations, chest pain, headache, or tremors, stop the medicine and consult your physician. USE OF ACETAMINOPHEN (Tylenol): Acetaminophen may be taken for pain relief or fever control. It's much safer than aspirin, offering a wider range of "safe" dosages. It is safe during . Some brand names are Tylenol, Panadol, Datril, Anacin 3, Tempra, and Liquiprin. Acetaminophen can be repeated every four hours. The following are maximum recommended dosages: >89 pounds or adults 650 mg to 900 mg Acetaminophen can be repeated every four hours. Maximum dose not to exceed 4000 mg a day. SMOKING: If you smoke, you should stop smoking. The tar and chemicals in cigarette smoke are harmful. Smoking has been shown to cause: emphysema chronic bronchitis lung cancer mouth and throat cancer stomach and pancreas cancer premature aging defects In addition, smoking increases ear and lung infections in children of smokers. Salt and soda solution 1 quart of water 1 tablespoon of salt 1 teaspoon of baking soda Mixed 3 ingredients together and boil for 1 minute Placed in a covered quart jar Use 1/2 ounce of cold solution to gargle 3 times a day FOLLOW-UP CARE: If you have been referred to a physician for follow-up care, call the physician s office for an appointment as you were instructed or within the next two days. If you experience worsening or a significant change in your symptoms, notify the physician immediately or return to the Emergency Department at any time for re-evaluation. Forms: Smoking Cessation Education, Return to Work Referrals: JOSE D BUCKLEY MD [Primary Care Provider] - Follow up as needed
== END 2018-08-04 14:32 | disposition home or self-care (01) ==
LOC: ER 13:04
DX: J06.9 Acute upper respiratory infection, unspecified (principal); F17.210 Nicotine dependence, cigarettes, uncomplicated
CPT/HCPCS: 99283; 87070; 87880; J3490 ×3

== ENCOUNTER → 2018-08-31 | Outpatient (CLI) | payer MEDICAID ==
[2018-08-31 16:33] LABS: BACTERIA (WET MOUNT) 4+ BACTERIA SEEN; EPITHELIALS (WET MOUNT) 4+ EPITHELIALS SEEN; T.VAGINALIS (WET MOUNT) NO TRICHOMONAS SEEN; WBCS (WET MOUNT) 1+ WBCS SEEN; YEAST (WET MOUNT) YEAST SEEN
[2018-08-31 18:00] LABS: CHLAM PCR NOT DETECTED (NOT DETECT); GON PCR NOT DETECTED (NOT DETECT)
== END ==
LOC: LAB 16:16
PROVIDERS: ATTEND Nurse Practitioner Acute Care
DX: N89.8 Other specified noninflammatory disorders of vagina (principal); R30.0 Dysuria
CPT/HCPCS: 87086; 87088; 87186; 87210; 87491; 87591

== ENCOUNTER → 2019-01-25 | Outpatient (CLI) | payer MEDICAID ==
--- NOTE | 2019-01-25 16:07 | WOMENS IMAGING REPORT ---
EXAM DESCRIPTION: U/S BREAST UNILATERAL, COMPL COMPLETED DATE/TIME: 01/25/2019 8:20 am REASON FOR STUDY: N63.21 UNSPECIFIED LUMP IN THE LEFT BREAST, UPPER OUTER QUADRANT N63.21 UNSPECIFI ED LUMP IN THE LEFT BREAST, UPPER OUTER QUAD COMPARISON: Outside mammograms 01/21/2019 TECHNIQUE: Real-time and static grayscale imaging performed of the left breast targeted to the area of clinical concern. Selected color Doppler images recorded. LIMITATIONS: None. FINDINGS: MASS: Patient indicates a palpable mass of the left breast 12 o'clock position. Ultrasoun d of this area demonstrates a 6 x 6 x 2 cm solid mass with internal color flow and lobular borders. This may represent a large fibroadenoma. The low 80s tumor could not be excluded. Ultrasound-guided core biopsy with post biopsy clip placement and immediate follow-up two-view mammogram recommended. No left breast parenchymal cysts in the area of palpable abnormality. OTHER: No other significant finding. IMPRESSION: 6 x 6 x 2 cm solid mass left breast 12 o'clock position for which ultrasound-guided core biopsy and post biopsy clip placement with follow-up two-view mammogram recommended BIRAD: 4 Suspicious. Biopsy should be performed in the absence of clinical contra-indication. RECOMMENDATION: RECOMMENDED FOLLOW-UP: Ultrasound-guided core biopsy left breast mass, with post bio psy clip placement and follow-up two-view mammogram recommended COMMENT: The [employer] ([employer]) has developed recommendations for screening MRI of the breasts in certain patient populations, to be used in conjunction with mammography. Breast MRI s urveillance may be appropriate for women with more than 20% lifetime risk of developing breast cancer as determined by genetic testing, significant family history of the disease, or history of mantle r adiation for Hodgkins Disease. [employer]CR Practice Guidelines 2008. TECHNICAL DOCUMENTATION: JOB ID: [id number] [employer]- All Rights Reserved Reading location - IP/workstation name: [email or web address]
== END ==
LOC: WI 07:27
PROVIDERS: ATTEND Internal Medicine
DX: N63.21 Unspecified lump in the left breast, upper outer quadrant (principal)
CPT/HCPCS: 76641

== ENCOUNTER → 2019-04-13 | Outpatient (CLI) | payer MEDICAID ==
--- NOTE | 2019-04-13 15:33 | RADIOLOGY REPORT (SQ) ---
EXAM DESCRIPTION: ARTERIAL LOWER EXTREM BILAT COMPLETED DATE/TIME: 04/13/2019 3:23 pm REASON FOR STUDY: DECREASED PEDAL PULSES R09.89 OTH SYMPTOMS AND SIGNS INVOLVING THE CIRC AND RESP SY COMPARISON: None. TECHNIQUE: Dynamic and static donis scale and color images acquired of the lower extremity arteries. Additional selected spectral images recorded. ABIs recorded. LIMITATIONS: None. FINDINGS: RIGHT LEG: ABIS: Normal, over 1.0. INFLOW ARTERIES: Normal, no obstruction evident. FEMORAL ARTERIES:Multiphasic waveforms. Normal, no velocity elevation to suggest focal stenosis. Norm al color Doppler evaluation. No aneurysm. POPLITEAL ARTERY:Multiphasic waveforms. Normal, no velocity elevation to suggest focal stenosis. Norm al color Doppler evaluation. No aneurysm. PATENT TIBIOPERONEAL TRUNK AND 3 VESSEL RUNOFF: Yes, normal vessels. TBI: Not performed. OTHER: No other significant finding. LEFT LEG: ABIS: Normal, over 1.0. INFLOW ARTERIES: Normal, no obstruction evident. FEMORAL ARTERIES:Multiphasic waveforms. Normal, no velocity elevation to suggest focal stenosis. Norm al color Doppler evaluation. No aneurysm. POPLITEAL ARTERY:Multiphasic waveforms. Normal, no velocity elevation to suggest focal stenosis. Norm al color Doppler evaluation. No aneurysm. PATENT TIBIOPERONEAL TRUNK AND 3 VESSEL RUNOFF: Yes, normal vessels. TBI: Not performed. OTHER: No other significant finding. IMPRESSION: NORMAL BILATERAL LOWER EXTREMITY ARTERIAL DOPPLER WITH ABIs. COMMENT: JIHAN NORMAL: Greater than 1.0 MINIMAL DISEASE: 0.9 to 1.0 CLAUDICATION: 0.5 to 0.9 SEVERE ARTERIAL DISEASE: Less than 0.5 [facility] NORMAL: Greater than 1.0 (1.2 If Heavy Calcifications) NORMAL TO MILD ISCHEMIA: 0.8 to 1.0 MODERATE ISCHEMIA: 0.4 to 0.8 SEVERE ISCHEMIA: Less than 0.4 TECHNICAL DOCUMENTATION: JOB ID: [id number] [employer]- All Rights Reserved Reading location - IP/workstation name: [email or web address]
== END ==
LOC: RAD 12:54
PROVIDERS: ATTEND Physician Assistant Surgical
DX: R09.89 Other specified symptoms and signs involving the circulatory and respiratory systems (principal)
CPT/HCPCS: 93925

== ENCOUNTER 2019-08-13 10:00 | Emergency (ER) | payer MEDICAID ==
[2019-08-13 10:13] VITALS: BP 115/79
--- NOTE | 2019-08-13 10:25 | ER Document Report ---
HPI - HPI Time Seen by Provider: 08/13/19 10:15 Pain Level: 1 Notes: 39-year-old female presents to the ED for evaluation of urinary frequency urgency, dysuria suprapubic abdominal pain that started approximately 1 day ago. Has not tried any [id number] medications. Worse with time, nothing makes better. Denies fevers, chills, chest pain,palpitations, shortness of breath, dyspnea, nausea, vomiting, diarrhea, abdominal pain, hematuria,blurred vision, double vision, loss of vision, speech changes, LH, dizziness, syncope, headaches, wheezing, ST, URI, neck pain, weakness, bowel or bladder dysfunction, saddle anesthesia, numbness or tingling in bilateral upper or lower extremities equally, muscle paralysis, weakness in bilateral upper or lower extremities equally or rash. - REPRODUCTIVE Reproductive: DENIES: : Past Medical History - General Information source: Patient - Social History Smoking Status: Unknown if Ever Smoked Lives with: Spouse/Significant other Family History: Reviewed & Not Pertinent - Past Medical History Cardiac Medical History: Denies: Hx Coronary Artery Disease, Hx Heart Attack, Hx Hypertension Pulmonary Medical History: Denies: Hx Asthma, Hx Bronchitis, Hx COPD, Hx Pneumonia Neurological Medical History: Denies: Hx Cerebrovascular Accident, Hx Seizures Endocrine Medical History: Reports: Hx Diabetes Mellitus Type 1 Renal/ Medical History: Denies: Hx Peritoneal Dialysis GI Medical History: Reports: Hx Gastritis. Denies: Hx Hepatitis, Hx Hiatal He rnia, Hx Ulcer Musculoskeletal Medical History: Denies Hx Arthritis Psychiatric Medical History: Reports: Hx Depression Infectious Medical History: Denies: Hx Hepatitis Past Surgical History: Reports: Hx Section, Hx Gynecologic Surgery - colpo, Hx Tubal Ligation. Denies: Hx Hysterectomy, Hx Mastectomy, Hx Open Heart Surgery, Hx Pacemaker - Immunizations Immunizations up to date: Yes Hx Diphtheria, Pertussis, Tetanus Vaccination: Yes Vertical Provider Document - CONSTITUTIONAL Agree With Documented VS: Yes Exam Limitations: No Limitations General Appearance: WD/WN Notes: PHYSICAL EXAMINATION: GENERAL: Well-appearing, well-nourished and in no acute distress. HEAD: Atraumatic, normocephalic. EYES: Pupils equal round and reactive to light, extraocular movements intact, conjunctiva are normal. ENT: Nares patent, oropharynx clear without exudates. Moist mucous membranes. NECK: Normal range of motion, supple without lymphadenopathy LUNGS: Breath sounds clear to auscultation bilaterally and equal. No wheezes rales or rhonchi. HEART: Regular rate and rhythm without murmurs ABDOMEN: Soft, nontender, nondistended abdomen. No guarding, no rebound. No masses appreciated. Suprapubic tenderness on palpation, no CVA tenderness appreciated bilaterally. Female : deferred Musculoskeletal: Normal range of motion, no pitting or edema. No cyanosis. NEUROLOGICAL: Cranial nerves grossly intact. Normal speech, normal gait. Normal sensory, motor exams PSYCH: Normal mood, normal affect. SKIN: Warm, Dry, normal turgor, no rashes or lesions noted. - INFECTION CONTROL TRAVEL OUTSIDE OF THE [place] IN LAST 30 DAYS: No Course - Re-evaluation Re-evalutation: 08/13/19 10:25 Afebrile vital stable no distress. Patient presents with symptoms consistent with an acute cystitis. Vitals wnl. No history of fever, flank pain, or constitution symptoms to suggest ascending infection at this time. Patient is well in appearance, tolerating oral intake without difficulty. No focal abdominal tenderness to suggest acute appendicitis, biliary pathology, acute pancreatitis, tubo-ovarian abscesses, or pelvic inflammatory disease. Patient will be started on antibiotics at this time. A culture has been sent. They will be discharged with return precautions and follow-up recommendations. - Vital Signs Vital signs: Temp Pulse Resp BP Pulse Ox 98.2 F 93 18 115/79 99 08/13/19 10:09 08/13/19 10:09 08/13/19 10:09 08/13/19 10:09 08/13/19 10:09 Discharge - Discharge Clinical Impression: UTI (urinary tract infection) Qualifiers: Urinary tract infection type: acute cystitis Hematuria presence: with hematuria Qualified Code(s): N30.01 - Acute cystitis with hematuria Condition: Stable Disposition: HOME, SELF-CARE Instructions: Nitrofurantoin ([facility]), Urinary Tract Infection ([facility]), Urinary Anesthetic Agent ([facility]) Additional Instructions: Your urine shows findings consistent with a urinary tract infection. Please take all the antibiotics as directed even if your symptoms have improved. Please follow-up with your primary care physician as needed. Return to emergency room if you develop fever >101F, persistent vomiting, become lethargic, have severe pain in your sides, or any other symptoms that are concerning to you. Prescriptions: Nitrofurantoin Macrocrystal [Macrodantin] 100 mg PO BID #20 capsule Phenazopyridine HCl [Pyridium] 200 mg PO TIDP PRN #9 tablet PRN Reason: Forms: Return to Work Referrals: HERNANDO RIVERA PA-C [ALLIED HEALTH PROFESSIONAL] - Follow up in 3-5 days
[2019-08-13 10:34] LABS: AMORPHOUS SEDIMENT,URINE TRACE /HPF; APPEARANCE,URINE CLOUDY; BILIRUBIN,URINE NEGATIVE (NEGATIVE); COLOR,URINE AMBER; GLUCOSE, URINE 50 mg/dL (NEGATIVE); KETONES,URINE TRACE mg/dL (NEGATIVE); LEUKOCYTE ESTERASE,URINE MODERATE (NEGATIVE); NITRITE,URINE NEGATIVE (NEGATIVE); PROTEIN,URINE 100 mg/dL (NEGATIVE); URINE SPECIFIC GRAVITY 1.023; UROBILINOGEN,URINE NEGATIVE mg/dL (<2.0)
== END 2019-08-13 10:58 | disposition home or self-care (01) ==
LOC: ER 10:00
DX: N30.01 Acute cystitis with hematuria (principal); R35.0 Frequency of micturition; R39.15 Urgency of urination; R30.0 Dysuria; R10.30 Lower abdominal pain, unspecified; E10.9 Type 1 diabetes mellitus without complications; Z98.51 Tubal ligation status; Z87.19 Personal history of other diseases of the digestive system
CPT/HCPCS: 81001; 81025; 99283

== ENCOUNTER 2019-10-17 11:55 | Emergency (ER) | payer MEDICAID ==
--- NOTE | 2019-10-17 12:51 | ER Document Report ---
HPI - HPI Patient complains to provider of: urinary symptoms Time Seen by Provider: 10/17/19 12:40 Onset: Other - 3 days Onset/Duration: Persistent Quality of pain: Burning Pain Level: 4 Context: Patient presents complaining of dysuria and frequency over the past 3 days. Patient is concerned she may have UTI. Patient denies any vaginal bleeding or discharge. No concern for STI, no nausea or vomiting, no flank pain. Associated Symptoms: Other - Dysuria, frequency. denies: Nonproductive cough, Productive cough, Fever Exacerbated by: Denies Relieved by: Denies Similar symptoms previously: Yes Recently seen / treated by doctor: No - ROS ROS below otherwise negative: Yes Systems Reviewed and Negative: Yes All other systems reviewed and negative - CONSTITUTIONAL Constitutional: DENIES: Fever, Chills - RESPIRATORY Respiratory: DENIES: Trouble Breathing, Coughing - GASTROINTESTINAL Gastrointestinal: REPORTS: Abdominal Pain - Suprapubic. DENIES: Nausea, Patient vomiting - URINARY Urinary: REPORTS: Dysuria, Frequency - REPRODUCTIVE Reproductive: DENIES: : - MUSCULOSKELETAL Musculoskeletal: DENIES: Back Pain - DERM Skin Color: Normal Skin Problems: None Past Medical History - General Information source: Patient - Social History Smoking Status: Never Smoker Frequency of alcohol use: None Drug Abuse: None Occupation: Home health Family History: Reviewed & Not Pertinent Patient has suicidal ideation: No Patient has homicidal ideation: No Endocrine Medical History: Reports: Hx Diabetes Mellitus Type 1 Renal/ Medical History: Denies: Hx Peritoneal Dialysis GI Medical History: Reports: Hx Gastritis Musculoskeletal Medical History: Denies Hx Arthritis Psychiatric Medical History: Reports: Hx Depression Infectious Medical History: Denies: Hx Hepatitis Past Surgical History: Reports: Hx Section, Hx Gynecologic Surgery - colpo, Hx Tubal Ligation - Immunizations Immunizations up to date: Yes Hx Diphtheria, Pertussis, Tetanus Vaccination: Yes Vertical Provider Document - CONSTITUTIONAL Agree With Documented VS: Yes Exam Limitations: No Limitations General Appearance: WD/WN, No Apparent Distress - INFECTION CONTROL TRAVEL OUTSIDE OF THE [place] IN LAST 30 DAYS: No - HEENT HEENT: Atraumatic, Normocephalic - NECK Neck: Normal Inspection, Supple - RESPIRATORY Respiratory: Breath Sounds Normal, No Respiratory Distress - CARDIOVASCULAR Cardiovascular: Regular Rate, Regular Rhythm - GI/ABDOMEN Gastrointestinal: Abdomen Soft, Abdomen Tender - Suprapubic - BACK Back: Normal Inspection. negative: CVA Tenderness-Right, CVA Tenderness-Left - MUSCULOSKELETAL/EXTREMETIES Musculoskeletal/Extremeties: MAEW - NEURO Level of Consciousness: Awake, Alert, Appropriate Motor/Sensory: No Motor Deficit - DERM Integumentary: Warm, Dry, No Rash Course - Re-evaluation Re-evalutation: 10/17/19 13:59 Patient with UTI, no concern for pyelonephritis or sepsis at this time. Patient without any findings worrisome for obstructive uropathy. Culture will be obtained. Discussed with patient worsening signs or symptoms that she should return immediately for. Patient verbalized understanding and is agreeable with plan of care. - Vital Signs Vital signs: Temp Pulse Resp BP Pulse Ox 98.3 F 90 18 115/73 99 10/17/19 12:01 10/17/19 12:01 10/17/19 12:01 10/17/19 12:01 10/17/19 12:01 - Laboratory Laboratory results interpreted by me: 10/17/19 13:59 Labs- Entire Visit 10/17/19 12:52 Urine Color ORANGE Urine Appearance CLOUDY Urine pH 7.0 Ur Specific [place] 1.015 Urine Protein 100 H Urine Glucose (UA) NEGATIVE Urine Ketones TRACE H Urine Blood SMALL H Urine Nitrite (Reflex) POSITIVE H Urine Bilirubin NEGATIVE Urine Urobilinogen 4.0 H Leukocyte Esterase Rfl MODERATE H Urine RBC (Auto) 58 Urine WBC (Reflex) > 182 Urine WBC Clumps MANY Squamous Epi Cells Auto 6 U Non-Squamous Epis Auto 1 Urine Mucus (Auto) RARE Urine Ascorbic Acid NEGATIVE Urine HCG, Qual NEGATIVE Discharge - Discharge Clinical Impression: UTI (urinary tract infection) Qualifiers: Urinary tract infection type: site unspecified Hematuria presence: with hematuria Qualified Code(s): N39.0 - Urinary tract infection, site not specified; R31.9 - Hematuria, unspecified Condition: Stable Disposition: HOME, SELF-CARE Instructions: Urinary Tract Infection ([facility]), Trimethoprim-Sulfa ([facility]), Urinary Anesthetic Agent ([facility]) Additional Instructions: Return immediately for any new or worsening symptoms Followup with your primary care provider, call tomorrow to make a followup appointment Prescriptions: Sulfamethoxazole/Trimethoprim [Bactrim Ds Tablet] 1 each PO BID #14 tablet Phenazopyridine HCl [Pyridium 200 mg Tablet] 200 mg PO TID #15 tablet Forms: Return to Work Referrals: JOSE D BUCKLEY MD [ACTIVE STAFF] - Follow up as needed
[2019-10-17 13:52] LABS: APPEARANCE,URINE CLOUDY; BILIRUBIN,URINE NEGATIVE (NEGATIVE); GLUCOSE, URINE NEGATIVE (NEGATIVE); KETONES,URINE TRACE mg/dL (NEGATIVE); PROTEIN,URINE 100 mg/dL (NEGATIVE); URINE SPECIFIC GRAVITY 1.015
[2019-10-17 13:54] LABS: COLOR,URINE ORANGE
[2019-10-17] MEDS ORDERED: PHENAZOPYRIDINE HCL 100 MG TABLET PO ONE (13:59)
[2019-10-17] MEDS ORDERED: SULFAMETHOXAZOLE/TRIMETHOPRIM 800-160 MG TABLET PO ONE (13:59)
[2019-10-17 14:15] VITALS: BP 114/74
== END 2019-10-17 14:14 | disposition home or self-care (01) ==
LOC: ER 11:55
DX: N39.0 Urinary tract infection, site not specified (principal); R31.9 Hematuria, unspecified; R30.0 Dysuria; R10.30 Lower abdominal pain, unspecified; R35.0 Frequency of micturition; E10.9 Type 1 diabetes mellitus without complications
CPT/HCPCS: 99283; 87086; 81025; 87088; 81001; J3490 ×2; 87186

== ENCOUNTER 2019-12-06 11:17 | Emergency (ER) | payer MEDICAID ==
--- NOTE | 2019-12-06 12:35 | ER Document Report ---
HPI - HPI Time Seen by Provider: 12/06/19 12:27 Context: Patient is a 39-year-old female with a history of type 1 diabetes on insulin who presents emergency department with a chief complaint of vaginal discomfort. Patient reports that she did see her primary care physician Dr. Buckley last Thursday for the same type of symptoms. Patient reports that she was diagnosed with a urinary tract infection and did complete her oral antibiotics today. Patient reports that she continues to have urinary frequency. Patient reports she feels like her vagina is swollen and has a heartbeat. Patient denies vaginal discharge or bleeding. Patient reports she is also having vaginal itching. Patient reports her last menstrual cycle was at the beginning of this month about 2 weeks ago. Patient reports there is some concern for sexually transmitted diseases. Patient reports she had a Pap smear completed last Thursday but has not received the results yet from her primary care physician. Patient denies abdominal pain, fever or any other symptoms. - REPRODUCTIVE Reproductive: DENIES: : Past Medical History - General Information source: Patient - Social History Smoking Status: Unknown if Ever Smoked Lives with: Family Family History: Reviewed & Not Pertinent - Past Medical History Cardiac Medical History: Reports: None Pulmonary Medical History: Reports: None EENT Medical History: Reports: None Neurological Medical History: Reports: None Endocrine Medical History: Reports: Hx Diabetes Mellitus Type 1 Renal/ Medical History: Reports: None. Denies: Hx Peritoneal Dialysis Malignancy Medical History: Reports: None GI Medical History: Reports: Hx Gastritis. Denies: Hx Hepatitis Musculoskeletal Medical History: Reports None, Denies Hx Arthritis Skin Medical History: Reports None Psychiatric Medical History: Reports: Hx Depression Traumatic Medical History: Reports: None Infectious Medical History: Reports: None. Denies: Hx Hepatitis Past Surgical History: Reports: Hx Section, Hx Gynecologic Surgery - colpo, Hx Tubal Ligation - Immunizations Immunizations up to date: Yes Hx Diphtheria, Pertussis, Tetanus Vaccination: Yes Vertical Provider Document - CONSTITUTIONAL Agree With Documented VS: Yes Exam Limitations: No Limitations General Appearance: No Apparent Distress - INFECTION CONTROL TRAVEL OUTSIDE OF THE [place] IN LAST 30 DAYS: No - HEENT HEENT: Atraumatic, Normal ENT Exam, Normocephalic, PERRLA - NECK Neck: Normal Inspection - RESPIRATORY Respiratory: Breath Sounds Normal, No Respiratory Distress - CARDIOVASCULAR Cardiovascular: Regular Rate, Regular Rhythm - GI/ABDOMEN Gastrointestinal: Abdomen Soft, Abdomen Non-Tender, Normal Bowel Sounds - MUSCULOSKELETAL/EXTREMETIES Musculoskeletal/Extremeties: FROM - NEURO Level of Consciousness: Awake, Alert, Appropriate - DERM Integumentary: Warm, Dry, No Rash Course - Re-evaluation Re-evalutation: 12/06/19 12:34 Patient's vital signs are within normal limits without a tachycardia, hypotension or fever. Patient is nontoxic-appearing. Will perform a pelvic examination with wet mount and GC chlamydia specimens. We will also obtain a urinalysis as well as an hCG. Patient in agreement with this plan. 12/06/19 13:27 Patient's pelvic exam specimens did reveal a bacterial vaginosis as well as a yeast infection. We will give the patient a one-time dose of Diflucan here in the emergency department. I did discuss the results with the patient. Patient to follow-up with Dr. Buckley will go over the results of her Pap smear that she had last week and for a follow-up as she may continue to have symptoms. Patient given strict return precautions. Patient reports that her blood sugars have been up and down at times. I did inform her to check this regularly as she could have gotten yeast infection from recent antibiotic use or forearm elevated blood sugars. - Vital Signs Vital signs: Temp Pulse Resp BP Pulse Ox 98.5 F 92 20 120/78 100 12/06/19 12:17 12/06/19 12:17 12/06/19 12:17 12/06/19 12:17 12/06/19 12:17 - Laboratory Laboratory results interpreted by me: 12/06/19 13:32 Laboratory 12/06/19 12/06/19 12:40 12:58 Urine Color YELLOW Urine Appearance CLOUDY Urine pH 6.0 Ur Specific [place] 1.029 Urine Protein NEGATIVE Urine Glucose (UA) >=500 H Urine Ketones TRACE H Urine Blood NEGATIVE Urine Nitrite NEGATIVE Urine Bilirubin NEGATIVE Urine Urobilinogen NEGATIVE Ur Leukocyte Esterase SMALL H Urine WBC (Auto) 10 Urine RBC (Auto) 4 U Hyaline Cast (Auto) 1 Urine Bacteria (Auto) TRACE Squamous Epi Cells Auto 9 Urine Mucus (Auto) RARE Urine Ascorbic Acid NEGATIVE Urine HCG, Qual NEGATIVE Epi Cells (Wet Prep) 3+ EPITHELIALS SEEN Bacteria (Wet Prep) 4+ BACTERIA SEEN Trichomonas (Wet Prep) NO TRICHOMONAS SEEN Vaginal WBC FEW WBCS SEEN Vaginal Yeast YEAST SEEN Procedures - Pelvic Exam Pelvic exam Cultures obtained: Yes Wet prep obtained: Yes Witnessed by: COLLETTE RODGERS PCT Notes: 12/06/19 13:14 Patient's external genitalia does reveal a thick white vaginal discharge. There is some edema noted to the labia majora. Slight erythema. No skin breakdown or lesions. Patient tolerated the insertion of the speculum well. I was able to visualize the cervix. Patient had a large amount of thick white vaginal discharge. No blood noted within the vaginal vault. Discharge - Discharge Clinical Impression: Vaginal itching, Vaginal discomfort, Vaginal fernando, Bacterial vaginosis Condition: Stable Disposition: HOME, SELF-CARE Additional Instructions: *Your pelvic examination specimens did show that you have a bacterial vaginosis. This is due to an overgrowth of bacteria in the vagina. This is sometimes can cause vaginal itching, pain, a foul-smelling discharge and burning with urination. You are being prescribed Flagyl for this. Flagyl is an antibiotic that you will take twice a day for the next week. Do not drink alcohol while on this medication as it can make you violently ill. *It was also found that you have yeast in the vagina. You have been given a one-time dose of Diflucan here in the emergency department. Typically this should resolve your symptoms. You are getting a prescription for Diflucan, which is a one-time dose. If you continue to have symptoms you can take this in 72 hours. Please follow-up with Dr. Buckley to get the results of your Pap smear and to have a follow-up. *It does appear that your urinary tract infection is resolving. We did send off a urine culture. You will be contacted if this grows any bacteria that requires antibiotics. Also be contacted if you are positive for gonorrhea and chlamydia. Vaginosis, Bacterial Your exam shows you have bacterial vaginosis. This condition is due to an overgrowth of bacteria in the vagina. Symptoms may include vaginal itching or pain, a smelly discharge, and sometimes burning with urination. Normally this is not transmitted by sexual contact. Vaginosis can be treated with oral or topical antibiotics. Metronidazole (Flagyl) pills are usually effective. Topical vaginal creams include Cleocin and Metro-Gel. You should avoid sexual contact until your symptoms are all better. Call the doctor if you develop pelvic pain, fever, or problems with urination, or if you don't improve as expected. Vaginal Yeast Infection You have evidence of a yeast infection -- called "fernando." A vaginal yeast infection often causes itching and discharge. While not dangerous, it can be very unpleasant. A yeast infection often follows the use of powerful antibiotics. It is more likely to occur in diabetics. The treatment now is usually a single pill of Diflucan, but also an antifungal cream or suppository may be used for a few days. You do not need to avoid sexual intercourse. Recurrences are common. You can make a recurrence less likely by wearing cotton underwear and avoiding tight clothing. For mild recurrences, you can try [id number] creams or suppositories that are made specifically for yeast. If the symptoms do not resolve, you should follow up for re-examination. Sometimes treatment of the sexual partner is necessary if infections are recurrent. Prescriptions: Fluconazole [Diflucan] 100 mg PO ONCE PRN #1 tablet PRN Reason: Metronidazole [Flagyl 500 mg Tablet] 500 mg PO BID 7 Days #14 tablet Forms: Return to Work Referrals: JOSE D BUCKLEY MD [Primary Care Provider] - Follow up as needed
[2019-12-06 12:55] LABS: APPEARANCE,URINE CLOUDY; BILIRUBIN,URINE NEGATIVE (NEGATIVE); COLOR,URINE YELLOW; GLUCOSE, URINE >=500 mg/dL (NEGATIVE); KETONES,URINE TRACE mg/dL (NEGATIVE); LEUKOCYTE ESTERASE,URINE SMALL (NEGATIVE); NITRITE,URINE NEGATIVE (NEGATIVE); PROTEIN,URINE NEGATIVE (NEGATIVE); URINE SPECIFIC GRAVITY 1.029; UROBILINOGEN,URINE NEGATIVE mg/dL (<2.0)
[2019-12-06 13:17] LABS: T.VAGINALIS (WET MOUNT) NO TRICHOMONAS SEEN; WBCS (WET MOUNT) FEW WBCS SEEN; YEAST (WET MOUNT) YEAST SEEN
[2019-12-06 13:18] LABS: BACTERIA (WET MOUNT) 4+ BACTERIA SEEN; EPITHELIALS (WET MOUNT) 3+ EPITHELIALS SEEN
[2019-12-06] MEDS ORDERED: FLUCONAZOLE 100 MG TABLET PO ONE (13:24)
[2019-12-06 13:41] VITALS: BP 128/92
[2019-12-06 14:48] LABS: CHLAM PCR NOT DETECTED (NOT DETECT)
== END 2019-12-06 13:35 | disposition home or self-care (01) ==
LOC: ER 11:17
DX: B37.3 Candidiasis of vulva and vagina (principal); N76.0 Acute vaginitis; B96.89 Other specified bacterial agents as the cause of diseases classified elsewhere; E10.9 Type 1 diabetes mellitus without complications; Z79.4 Long term (current) use of insulin; Z87.440 Personal history of urinary (tract) infections; R35.0 Frequency of micturition
CPT/HCPCS: 99283; 87086; 87210; 81025; 81001; 87491; 87591; J3490

== ENCOUNTER 2020-05-22 18:01 | Emergency (ER) | payer MEDICAID ==
[2020-05-22] MEDS ORDERED: ONDANSETRON HCL INJ/PF 4 MG/2 ML SDV IV ONE (20:43)
[2020-05-22] MEDS ORDERED: NORMAL SALINE 1000 ML 1,000 ML IV ONE ×2 (20:43→20:44)
[2020-05-22] MEDS ORDERED: MORPHINE SULFATE 10 MG/ML INJ IV ONE (20:44)
[2020-05-22 21:04] LABS: ABSOLUTE LYMPHOCYTES (AUTO) 0.5 10^3/uL (0.5-4.7); ABSOLUTE MONOCYTES (AUTO) 0.2 10^3/uL (0.1-1.4); ABSOLUTE NEUT (AUTO) 6.9 10^3/uL (1.7-8.2); BASOPHILS % (AUTO) 0.3 % (0-2); EOSINOPHILS % (AUTO) 0.1 % (0-6); HEMATOCRIT 40.7 % (36.0-47.0); HEMOGLOBIN 13.8 g/dL (12.0-15.5); MEAN CORPUSCULAR HEMOGLOBIN 31.7 pg (27.0-33.4); MEAN CORPUSCULAR HGB CONC 33.9 g/dL (32.0-36.0); MEAN CORPUSCULAR VOLUME 94 fl (80-97); MONOCYTES % (AUTO) 2.2 % (3-13); PLATELET COUNT 218 10^3/uL (150-450); RED BLOOD COUNT 4.35 10^6/uL (3.72-5.28); RED CELL DISTRIBUTION WIDTH 13.6 % (11.5-14.0); SEGMENTED NEUTROPHILS % (AUTO) 91.4 % (42-78); TOTAL CELLS COUNTED % (AUTO) 100 %; WHITE BLOOD COUNT 7.6 10^3/uL (4.0-10.5)
[2020-05-22 21:12] LABS: VENOUS BLOOD BASE EXCESS -2.5 mmol/L; VENOUS BLOOD HCO3 23.5 mmol/L (20-32); VENOUS BLOOD PCO2 44.9 mmHg (35-63); VENOUS BLOOD PH 7.34 (7.30-7.42)
[2020-05-22 21:16] LABS: APPEARANCE,URINE CLOUDY; BILIRUBIN,URINE NEGATIVE (NEGATIVE); COLOR,URINE AMBER; GLUCOSE, URINE >=500 mg/dL (NEGATIVE); KETONES,URINE 80 mg/dL (NEGATIVE); LEUKOCYTE ESTERASE,URINE NEGATIVE (NEGATIVE); NITRITE,URINE POSITIVE (NEGATIVE); PROTEIN,URINE 30 mg/dL (NEGATIVE); URINE SPECIFIC GRAVITY 1.027; UROBILINOGEN,URINE NEGATIVE mg/dL (<2.0)
[2020-05-22 21:29] LABS: ALKALINE PHOSPHATASE 86 U/L (38-126); ANION GAP 11 (5-19); ASPARTATE AMINO TRANSFERASE 30 U/L (14-36); BILIRUBIN,TOTAL 0.9 mg/dL (0.2-1.3); BLOOD UREA NITROGEN 18 mg/dL (7-20); CALCIUM 9.8 mg/dL (8.4-10.2); CARBON DIOXIDE 24 mmol/L (22-30); CHLORIDE 99 mmol/L (98-107); GLUCOSE 348 mg/dL (75-110); POTASSIUM 4.7 mmol/L (3.6-5.0); TOTAL PROTEIN 8.6 g/dL (6.3-8.2)
--- NOTE | 2020-05-22 22:21 | ER Document Report ---
ED General - General Chief Complaint: Nausea/Vomiting/Diarrhea Stated Complaint: NAUSEA/VOMITING Time Seen by Provider: 05/22/20 20:22 Primary Care Provider: JOCELIN GARCIA MD [ACTIVE STAFF] - Follow up as needed JOSE D BUCKLEY MD [Primary Care Provider] - Follow up as needed Mode of Arrival: Ambulatory Information source: Patient Notes: Patient is a 40-year-old female with insulin-dependent diabetes presenting to the emergency department chief complaint of generalized abdominal pain, chills and vomiting. She reports symptoms started this morning. She denies any diarrhea, dysuria or urinary frequency. She was seen in an urgent care a few days ago and reports that she had a urine culture taken. She has not on any antibiotics currently. TRAVEL OUTSIDE OF THE [place] IN LAST 30 DAYS: No - Related Data Allergies/Adverse Reactions: Penicillins Allergy (Mild, Verified 05/22/20 21:09) rash Past Medical History - General Information source: Patient - Social History Smoking Status: Current Every Day Smoker Frequency of alcohol use: None Drug Abuse: None Family History: Reviewed & Not Pertinent Patient has homicidal ideation: No Endocrine Medical History: Reports: Hx Diabetes Mellitus Type 1 Renal/ Medical History: Denies: Hx Peritoneal Dialysis GI Medical History: Reports: Hx Gastritis. Denies: Hx Hepatitis Musculoskeletal Medical History: Denies Hx Arthritis Psychiatric Medical History: Reports: Hx Depression Infectious Medical History: Denies: Hx Hepatitis Past Surgical History: Reports: Hx Section, Hx Gynecologic Surgery - colpo, Hx Tubal Ligation - Immunizations Immunizations up to date: Yes Hx Diphtheria, Pertussis, Tetanus Vaccination: Yes Review of Systems - Review of Systems Constitutional: Chills EENT: No symptoms reported Cardiovascular: No symptoms reported Respiratory: No symptoms reported Gastrointestinal: Abdominal pain, Nausea, Vomiting Genitourinary: No symptoms reported Female Genitourinary: No symptoms reported Musculoskeletal: No symptoms reported Skin: No symptoms reported Hematologic/Lymphatic: No symptoms reported Neurological/Psychological: No symptoms reported Physical Exam - Vital signs Vitals: Temp Pulse Resp BP Pulse Ox 98.6 F 97 18 151/87 H 100 05/22/20 20:15 05/22/20 20:15 05/22/20 20:15 05/22/20 20:15 05/22/20 20:15 - Notes Notes: PHYSICAL EXAMINATION: GENERAL: Actively vomiting. HEAD: Atraumatic, normocephalic. EYES: Pupils equal round and reactive to light, extraocular movements intact, conjunctiva are normal. ENT: Nares patent, oropharynx clear without exudates. Moist mucous membranes. NECK: Normal range of motion, supple without lymphadenopathy LUNGS: Breath sounds clear to auscultation bilaterally and equal. No wheezes rales or rhonchi. HEART: Regular rate and rhythm without murmurs ABDOMEN: Soft, mild diffuse tenderness, nondistended abdomen. No guarding, no rebound. No masses appreciated. Female : deferred Musculoskeletal: Normal range of motion, no pitting or edema. No cyanosis. NEUROLOGICAL: Cranial nerves grossly intact. Normal speech, normal gait. Normal sensory, motor exams PSYCH: Normal mood, normal affect. SKIN: Warm, Dry, normal turgor, no rashes or lesions noted. Course - Re-evaluation Re-evalutation: Laboratory 05/22/20 05/22/20 05/22/20 20:54 20:54 20:54 WBC 7.6 RBC 4.35 Hgb 13.8 Hct 40.7 MCV 94 MCH 31.7 MCHC 33.9 RDW 13.6 Plt Count 218 Lymph % (Auto) 6.0 L Roosevelt % (Auto) 2.2 L Eos % (Auto) 0.1 Baso % (Auto) 0.3 Absolute Neuts (auto) 6.9 Absolute Lymphs (auto) 0.5 Absolute Monos (auto) 0.2 Absolute Eos (auto) 0.0 Absolute Basos (auto) 0.0 Seg Neutrophils % 91.4 H VBG pH 7.34 VBG pCO2 44.9 VBG HCO3 23.5 VBG Base Excess -2.5 Sodium 134.1 L Potassium 4.7 Chloride 99 Carbon Dioxide 24 Anion Gap 11 BUN 18 Creatinine 0.68 Est GFR ( Amer) > 60 Est GFR (MDRD) Non-Af > 60 Glucose 348 H POC Glucose Calcium 9.8 Total Bilirubin 0.9 Direct Bilirubin 0.0 Neonat Total Bilirubin Not Reportable Neonat Direct Bilirubin Not Reportable Neonat Indirect Bili Not Reportable AST 30 ALT 18 Alkaline Phosphatase 86 Total Protein 8.6 H Albumin 5.0 Lipase 11.6 L Urine Color Urine Appearance Urine pH Ur Specific [place] Urine Protein Urine Glucose (UA) Urine Ketones Urine Blood Urine Nitrite Urine Bilirubin Urine Urobilinogen Ur Leukocyte Esterase Urine WBC (Auto) Urine RBC (Auto) Urine Bacteria (Auto) Squamous Epi Cells Auto Urine Mucus (Auto) Urine Ascorbic Acid 05/22/20 05/22/20 20:54 23:25 WBC RBC Hgb Hct MCV MCH MCHC RDW Plt Count Lymph % (Auto) Roosevelt % (Auto) Eos % (Auto) Baso % (Auto) Absolute Neuts (auto) Absolute Lymphs (auto) Absolute Monos (auto) Absolute Eos (auto) Absolute Basos (auto) Seg Neutrophils % VBG pH VBG pCO2 VBG HCO3 VBG Base Excess Sodium Potassium Chloride Carbon Dioxide Anion Gap BUN Creatinine Est GFR ( Amer) Est GFR (MDRD) Non-Af Glucose POC Glucose 310 H Calcium Total Bilirubin Direct Bilirubin Neonat Total Bilirubin Neonat Direct Bilirubin Neonat Indirect Bili AST ALT Alkaline Phosphatase Total Protein Albumin Lipase Urine Color FINESSE Urine Appearance CLOUDY Urine pH 7.0 Ur Specific [place] 1.027 Urine Protein 30 H Urine Glucose (UA) >=500 H Urine Ketones 80 H Urine Blood NEGATIVE Urine Nitrite POSITIVE H Urine Bilirubin NEGATIVE Urine Urobilinogen NEGATIVE Ur Leukocyte Esterase NEGATIVE Urine WBC (Auto) 2 Urine RBC (Auto) 5 Urine Bacteria (Auto) TRACE Squamous Epi Cells Auto 61 Urine Mucus (Auto) RARE Urine Ascorbic Acid NEGATIVE Abdomen/Pelvis CT 05/22/20 22:50 IMPRESSION: Diffuse colonic wall thickening, particularly about the ascending and transverse segments, suspicious for an infectious/inflammatory colitis. Suspect fibroid uterus. Heterogenous appearance of the inferior aspects of the rectus abdominis musculature, as above. Additionally, the leftward aspect of the rectus abdominis musculature appears asymmetrically larger compared to the contralateral side. The etiology of this finding is uncertain though possibilities include scarring, infection, or potentially even malignancy. Correlate with physical examination/history and consider continued follow-up to document stability. Alternatively, percutaneous biopsy could be considered for definitive assessment. TECHNICAL DOCUMENTATION: Quality ID # 436: Final reports with documentation of one or more dose reduction techniques (e.g., Automated exposure control, adjustment of the mA and/or kV according to patient size, use of iterative reconstruction technique) copyright 2011 [employer]- All Rights Reserved CT results were discussed with Dr. severino. He recommends patient following up with gastroenterology for possible colonoscopy. Patient denies any family history of inflammatory bowel disease or Crohn's. She reports some improvement, she is asking for oral fluids. She has not had any vomiting since arrival to the emergency department. She is reporting that she does not feel well enough to go home yet. She will be given another dose of IV antibiotics, IV antiemetics and another liter of IV fluids. She will be reevaluated at that time. Bedside handoff given to my partner, Laurie Borrero and she will be following up with the patient. - Vital Signs Vital signs: Temp Pulse Resp BP Pulse Ox 98.7 F 106 H 18 99/59 L 97 05/22/20 22:35 05/23/20 02:45 05/23/20 02:45 05/23/20 02:45 05/23/20 02:45 - Laboratory Result Diagrams: 05/22/20 20:54 05/22/20 20:54 Laboratory results interpreted by me: 05/22/20 05/22/20 05/22/20 20:54 20:54 20:54 Lymph % (Auto) 6.0 L [place] % (Auto) 2.2 L Seg Neutrophils % 91.4 H Sodium 134.1 L Glucose 348 H POC Glucose Total Protein 8.6 H Lipase 11.6 L Urine Protein 30 H Urine Glucose (UA) >=500 H Urine Ketones 80 H Urine Nitrite POSITIVE H 05/22/20 23:25 Lymph % (Auto) Roosevelt % (Auto) Seg Neutrophils % Sodium Glucose POC Glucose 310 H Total Protein Lipase Urine Protein Urine Glucose (UA) Urine Ketones Urine Nitrite Discharge - Discharge Clinical Impression: Abdominal pain Qualifiers: Abdominal location: generalized Qualified Code(s): R10.84 - Generalized abdominal pain Nausea and vomiting Qualifiers: Vomiting type: unspecified Vomiting Intractability: unspecified Qualified Code(s): R11.2 - Nausea with vomiting, unspecified UTI (urinary tract infection) Qualifiers: Urinary tract infection type: site unspecified Hematuria presence: without hematuria Qualified Code(s): N39.0 - Urinary tract infection, site not specified Disposition: HOME, SELF-CARE Additional Instructions: Take medications as prescribed. Follow-up with Dr. Buckley regarding your urinary tract infection. Follow-up with the circular ripsaw operator regarding your CAT scan findings as you may need a colonoscopy. Prescriptions: Metoclopramide HCl [Reglan] 10 mg PO Q6HP PRN #15 tablet PRN Reason: Nitrofurantoin Monohyd/M-Cryst [Macrobid 100 mg Capsule] 100 mg PO BID #14 cap Ondansetron [Zofran Odt 4 mg Tablet] 1 - 2 tab PO Q4H PRN #15 tab.rapdis PRN Reason: For Nausea/Vomiting Referrals: JOSE D BUCKLEY MD [Primary Care Provider] - Follow up as needed JOCELIN GARCIA MD [ACTIVE STAFF] - Follow up as needed
[2020-05-22] MEDS ORDERED: METOCLOPRAMIDE HCL INJ/PF 10 MG/2 ML SDV IV ONE (23:10)
--- NOTE | 2020-05-23 00:29 | RADIOLOGY REPORT (SQ) ---
EXAM DESCRIPTION: CT ABDOMEN PELVIS WITH IV CONTRAST COMPLETED DATE/TME: 05/22/2020 22:50 CLINICAL HISTORY: 40 years, Female, abd pain, N/V COMPARISON: Prior CT from 03/12/2016 TECHNIQUE: Contrast enhanced CT of the abdomen/pelvis was acquired. Images were obtained after the administration of Omnipaque 350 intravenous contrast. 58 mL was administered. Images stored on PACS. All CT scanners at this facility use dose modulation, iterative reconstruction, and/or weight based dosing when appropriate to reduce radiation dose to as low as reasonably achievable (ALARA). [facility]: Dose Right [facility]: CareDose [facility]: Dose Right [facility]: Teradose 4D [facility]: [employer] LIMITATIONS: None. FINDINGS: Limited evaluation of the lower chest reveals clear lung bases. Liver appears to enhance normally. Only a geographic area of hypodensity is noted about the left hepatic lobe adjacent to the falciform ligament, either indicating an area of focal fatty infiltration or third inflow artifact given its characteristic location. Liver otherwise enhances normally. Spleen, pancreas, gallbladder, and both adrenal glands appear normal. Both kidneys enhance symmetrically. No hydronephrosis or hydroureter. Urinary bladder is distended and shows no suspicious finding. Uterus appears to contain a fundal fibroid along its anterior aspect, best visualized on image 62 of series 3. This measures approximately 1.8 x 1.6 cm in size. Neither ovary is well visualized. Diffuse circumferential colonic wall thickening is evident, particularly about the descending and transverse segments. Some degree of pericolonic inflammation is also noted. Appendix is normal. No evidence of bowel obstruction. Vascular structures opacify with contrast normally. There is a retroaortic left renal vein. No lymphadenopathy is appreciated. Trace free fluid layers dependently within the pelvis, presumably reactive. The rectus abdominis musculature appear somewhat heterogenous about its inferior aspect, with asymmetric enlargement on the left compared to the contralateral side. Elements of hypodensity are noted about the inferior aspect of the left rectus abdominis musculature as well, best visualized on image 70 of series 6. Overall, this measures approximately 5.3 x 1.9 cm in size. Additionally, this finding appears new/more conspicuous when compared to the previous CT dated 07/27/2016. Bone windows show no destructive osseous lesions. IMPRESSION: Diffuse colonic wall thickening, particularly about the ascending and transverse segments, suspicious for an infectious/inflammatory colitis. Suspect fibroid uterus. Heterogenous appearance of the inferior aspects of the rectus abdominis musculature, as above. Additionally, the leftward aspect of the rectus abdominis musculature appears asymmetrically larger compared to the contralateral side. The etiology of this finding is uncertain though possibilities include scarring, infection, or potentially even malignancy. Correlate with physical examination/history and consider continued follow-up to document stability. Alternatively, percutaneous biopsy could be considered for definitive assessment. TECHNICAL DOCUMENTATION: Quality ID # 436: Final reports with documentation of one or more dose reduction techniques (e.g., Automated exposure control, adjustment of the mA and/or kV according to patient size, use of iterative reconstruction technique) copyright 2011 [employer]- All Rights Reserved
[2020-05-23] MEDS ORDERED: ONDANSETRON HCL INJ/PF 4 MG/2 ML SDV IV ONE (01:18)
[2020-05-23] MEDS ORDERED: KETOROLAC TROMETHAMINE INJ/PF 30 MG/1 ML SDV IV ONE (01:19)
[2020-05-23] MEDS ORDERED: NORMAL SALINE 1000 ML 1,000 ML IV ONE (01:19)
[2020-05-23 02:52] VITALS: BP 99/59
== END 2020-05-23 03:12 | disposition home or self-care (01) ==
LOC: ER 18:01
DX: N39.0 Urinary tract infection, site not specified (principal); R10.84 Generalized abdominal pain; R11.2 Nausea with vomiting, unspecified; R19.7 Diarrhea, unspecified; F17.200 Nicotine dependence, unspecified, uncomplicated; E10.9 Type 1 diabetes mellitus without complications
CPT/HCPCS: 99284; 36415; 87086; 82962; 83690; 85025; 80053; 81001; 82803; 74177; J1885; J2765; J2270; J2405 ×2; J7030 ×2

== ENCOUNTER 2020-05-22 18:01 | Emergency (ER) | payer MEDICAID ==
--- NOTE | 2020-05-22 19:17 | ER Document Report ---
HPI - HPI Time Seen by Provider: 05/22/20 19:10 Notes: 40 yr old female presents to the ER for a refill of her rescue inhaler. Patient states she ran out of her rescue inhaler when she had an anxiety attack this morning but is since resolved. Patient was unable to get into her doctor to get a refill due to COVID pandemic. Denies fevers, chills, chest pain,palpitations, shortness of breath, dyspnea, nausea, vomiting, diarrhea, abdominal pain, hematuria,blurred vision, double vision, loss of vision, speech changes, LH, dizziness, syncope, headaches, wheezing, ST, URI, neck pain, weakness, bowel or bladder dysfunction, saddle anesthesia, numbness or tingling in bilateral upper or lower extremities equally, muscle paralysis, weakness in bilateral upper or lower extremities equally or rash. Denies IV drug use. MEDICATIONS: I agree with the patient medications as charted by the RN. ALLERGIES: I agree with the allergies as charted by the RN. PAST MEDICAL HISTORY/PAST SURGICAL HISTORY: Reviewed and agree as charted by RN. SOCIAL HISTORY: Reviewed and agree as charted by RN. FAMILY HISTORY: No significant familial comorbid conditions directly related to patient complaint EXAM: Reviewed vital signs as charted by RN. REVIEW OF SYSTEMS:reviewed vital signs by RN CONSTITUTIONAL : Denies fever, chills, or sweats. Denies recent illness. EENT: Denies eye, ear, throat, or mouth pain or symptoms. Denies nasal or sinus congestion or discharge. Denies throat, tongue, or mouth swelling or difficulty swallowing. CARDIOVASCULAR: Denies chest pain. Denies palpitations or racing or irregular heart beat. Denies ankle edema. RESPIRATORY: Denies cough, cold, or chest congestion. Denies shortness of breath, difficulty breathing, or wheezing. GASTROINTESTINAL: Denies abdominal pain or distention. Denies nausea, vomiting, or diarrhea. Denies blood in vomitus, stools, or per rectum. Denies black, tarry stools. Denies constipation. GENITOURINARY: Denies difficulty urinating, painful urination, burning, frequency, blood in urine, or discharge. FEMALE GENITOURINARY: Denies vaginal bleeding, heavy or abnormal periods, irregular periods. Denies vaginal discharge or odor. MUSCULOSKELETAL: Denies back or neck pain or stiffness. Denies joint pain or swelling. SKIN: Denies rash, lesions or sores. HEMATOLOGIC : Denies easy bruising or bleeding. LYMPHATIC: Denies swollen, enlarged glands. NEUROLOGICAL: Denies confusion or altered mental status. Denies passing out or loss of consciousness. Denies dizziness or lightheadedness. Denies headache. Denies weakness or paralysis or loss of use of either side. Denies problems with gait or speech. Denies sensory loss, numbness, or tingling. Denies seizures. PSYCHIATRIC: Denies anxiety or stress. Denies depression, suicidal ideation, or homicidal ideation. ALL OTHER SYSTEMS REVIEWED AND NEGATIVE. PHYSICAL EXAMINATION: GENERAL: Well-appearing, well-nourished and in no acute distress. HEAD: Atraumatic, normocephalic. EYES: Pupils equal round and reactive to light, extraocular movements intact, conjunctiva are normal. ENT: Nares patent, oropharynx clear without exudates. Moist mucous membranes. NECK: Normal range of motion, supple without lymphadenopathy LUNGS: Breath sounds clear to auscultation bilaterally and equal. No wheezes rales or rhonchi. HEART: Regular rate and rhythm without murmurs ABDOMEN: Soft, nontender, nondistended abdomen. No guarding, no rebound. No m asses appreciated. Female : deferred Musculoskeletal: Normal range of motion, no pitting or edema. No cyanosis. NEUROLOGICAL: Cranial nerves grossly intact. Normal speech, normal gait. Normal sensory, motor exams PSYCH: Normal mood, normal affect. SKIN: Warm, Dry, normal turgor, no rashes or lesions noted. Dictation was performed using [employer] voice recognition software - REPRODUCTIVE Reproductive: DENIES: : Past Medical History - General Information source: Patient - Social History Smoking Status: Unknown if Ever Smoked Family History: Reviewed & Not Pertinent Endocrine Medical History: Reports: Hx Diabetes Mellitus Type 1 Renal/ Medical History: Denies: Hx Peritoneal Dialysis GI Medical History: Reports: Hx Gastritis. Denies: Hx Hepatitis Musculoskeletal Medical History: Denies Hx Arthritis Psychiatric Medical History: Reports: Hx Depression Infectious Medical History: Denies: Hx Hepatitis Past Surgical History: Reports: Hx Section, Hx Gynecologic Surgery - colpo, Hx Tubal Ligation - Immunizations Immunizations up to date: Yes Hx Diphtheria, Pertussis, Tetanus Vaccination: Yes Vertical Provider Document - CONSTITUTIONAL Agree With Documented VS: Yes Exam Limitations: No Limitations General Appearance: WD/WN - INFECTION CONTROL TRAVEL OUTSIDE OF THE [place] IN LAST 30 DAYS: No Course - Re-evaluation Re-evalutation: 05/22/20 19:24 Afebrile. Vitals are stable. Discussed avoiding triggers for her asthma. Following up with her doctor as needed. After performing a Medical Screening Examination, I estimate there is LOW risk for ACUTE CORONARY SYNDROME, PULMONARY EMBOLI, RESPIRATORY FAILURE, SEPSIS OR MENINGITIS, thus I consider the discharge disposition reasonable. I have reevaluated this patient multiple times and no significant life threatening changes are noted. The patient and I have discussed the diagnosis and risks, and we agree with discharging home with close follow-up. We also discussed returning to the Emergency Department immediately if new or worsening symptoms occur. We have discussed the symptoms which are most concerning (e.g., changing or worsening pain, trouble swallowing or breathing, neck stiffness, fever) that necessitate immediate return. Discharge - Discharge Clinical Impression: Asthma Qualifiers: Asthma severity: mild Asthma persistence: unspecified Asthma complication type: unspecified Qualified Code(s): J45.909 - Unspecified asthma, uncomplicated Condition: Stable Disposition: HOME, SELF-CARE Instructions: Asthma ([facility]) Additional Instructions: Return immediately for any new or worsening symptoms. Follow up with primary care provider, call tomorrow to make followup appointment. Prescriptions: Albuterol Sulfate [Proair Respiclick] 90 mcg IH Q4HP PRN #1 [email or web address] PRN Reason: Referrals: JOSE D BUCKLEY MD [Primary Care Provider] - Follow up as needed
[2020-05-22 19:39] VITALS: BP 132/86
== END 2020-05-22 19:21 | disposition home or self-care (01) ==
LOC: ER 18:01
DX: J45.909 Unspecified asthma, uncomplicated (principal); E10.9 Type 1 diabetes mellitus without complications
CPT/HCPCS: 99281

== ENCOUNTER 2020-05-24 14:12 | Emergency (ER) | payer MEDICAID ==
[2020-05-24] MEDS ORDERED: NORMAL SALINE 1000 ML 1,000 ML IV ONE ×2 (17:48→19:49)
[2020-05-24] MEDS ORDERED: ONDANSETRON HCL INJ/PF 4 MG/2 ML SDV IV ONE (17:49)
[2020-05-24 18:26] LABS: ABSOLUTE LYMPHOCYTES (AUTO) 0.6 10^3/uL (0.5-4.7); ABSOLUTE MONOCYTES (AUTO) 0.3 10^3/uL (0.1-1.4); ABSOLUTE NEUT (AUTO) 10.2 10^3/uL (1.7-8.2); BASOPHILS % (AUTO) 0.3 % (0-2); HEMATOCRIT 39.7 % (36.0-47.0); HEMOGLOBIN 13.3 g/dL (12.0-15.5); LYMPHOCYTES % (AUTO) 5.8 % (13-45); MEAN CORPUSCULAR HEMOGLOBIN 31.2 pg (27.0-33.4); MEAN CORPUSCULAR HGB CONC 33.5 g/dL (32.0-36.0); MEAN CORPUSCULAR VOLUME 93 fl (80-97); MONOCYTES % (AUTO) 2.5 % (3-13); PLATELET COUNT 232 10^3/uL (150-450); RED BLOOD COUNT 4.27 10^6/uL (3.72-5.28); RED CELL DISTRIBUTION WIDTH 13.6 % (11.5-14.0); SEGMENTED NEUTROPHILS % (AUTO) 91.4 % (42-78); TOTAL CELLS COUNTED % (AUTO) 100 %; WHITE BLOOD COUNT 11.1 10^3/uL (4.0-10.5)
[2020-05-24 18:42] LABS: ALBUMIN 4.9 g/dL (3.5-5.0); ALKALINE PHOSPHATASE 95 U/L (38-126); ANION GAP 12 (5-19); ASPARTATE AMINO TRANSFERASE 30 U/L (14-36); BILIRUBIN,TOTAL 0.6 mg/dL (0.2-1.3); BLOOD UREA NITROGEN 16 mg/dL (7-20); CALCIUM 9.4 mg/dL (8.4-10.2); CARBON DIOXIDE 23 mmol/L (22-30); CHLORIDE 102 mmol/L (98-107); GLUCOSE 282 mg/dL (75-110); POTASSIUM 4.3 mmol/L (3.6-5.0); TOTAL PROTEIN 8.2 g/dL (6.3-8.2)
[2020-05-24 20:27] LABS: APPEARANCE,URINE CLOUDY; BILIRUBIN,URINE NEGATIVE (NEGATIVE); COLOR,URINE YELLOW; GLUCOSE, URINE >=500 mg/dL (NEGATIVE); KETONES,URINE 80 mg/dL (NEGATIVE); LEUKOCYTE ESTERASE,URINE NEGATIVE (NEGATIVE); NITRITE,URINE NEGATIVE (NEGATIVE); PROTEIN,URINE NEGATIVE (NEGATIVE); URINE SPECIFIC GRAVITY 1.026; UROBILINOGEN,URINE NEGATIVE mg/dL (<2.0)
[2020-05-24 20:59] VITALS: BP 142/89
[2020-05-24] MEDS ORDERED: PROMETHAZINE HCL 25 MG SUPP (4 SUPP/ER DISP) PR ONE (21:00)
--- NOTE | 2020-05-24 21:00 | ER Document Report ---
ED General - General Chief Complaint: Nausea/Vomiting Stated Complaint: ABDOMINAL PAIN,NAUSEA,VOMITING Time Seen by Provider: 05/24/20 17:30 Primary Care Provider: JOSE D BUCKLEY MD [Primary Care Provider] - Follow up as needed TRAVEL OUTSIDE OF THE [place] IN LAST 30 DAYS: No - HPI Notes: Patient is a 40-year-old female, with a history of type 1 diabetes, who presents to the emergency department for evaluation of nausea and vomiting for the second time in 24 hours. The patient was seen here yesterday. She was diagnosed with a UTI. She was sent home with Reglan and Zofran. She states this morning she woke, drank some orange juice, had some Calot, and started vomiting. She states that she vomited multiple times at home. She did not have a bowel movement today, had a normal bowel movement yesterday. She states that isolated vomiting has happened to her in the past. She has been taking her insulin. She denies any real pain. She states she did have a mild headache earlier, but that is resolved. She is still urinating. She has been taking her medications as prescribed. - Related Data Allergies/Adverse Reactions: Penicillins Allergy (Mild, Verified 05/22/20 21:09) rash Home Medications: Insulin, Macrobid, Reglan, Zofran Past Medical History - General Information source: Patient - Social History Smoking Status: Former Smoker Family History: Reviewed & Not Pertinent Patient has homicidal ideation: No Endocrine Medical History: Reports: Hx Diabetes Mellitus Type 1 Renal/ Medical History: Denies: Hx Peritoneal Dialysis GI Medical History: Reports: Hx Gastritis. Denies: Hx Hepatitis Musculoskeletal Medical History: Denies Hx Arthritis Psychiatric Medical History: Reports: Hx Depression Infectious Medical History: Denies: Hx Hepatitis Past Surgical History: Reports: Hx Section, Hx Gynecologic Surgery - colpo, Hx Tubal Ligation - Immunizations Immunizations up to date: Yes Hx Diphtheria, Pertussis, Tetanus Vaccination: Yes Review of Systems - Review of Systems Gastrointestinal: See HPI -: Yes All other systems reviewed and negative Physical Exam - Vital signs Vitals: Temp Pulse Resp BP Pulse Ox 98.3 F 101 H 20 146/86 H 100 05/24/20 14:28 05/24/20 14:28 05/24/20 14:28 05/24/20 14:28 05/24/20 14:28 - Notes Notes: Vital signs reviewed, please refer to chart. Head is normocephalic, atraumatic. Pupils equal round, reactive to light. Neck is supple without meningismus. Heart is regular rate and rhythm. Lungs are clear to auscultation bilaterally. Abdomen is soft, nontender, normoactive bowel sounds throughout. Extremities without cyanosis, clubbing. Posterior calves are nontender. Peripheral pulses are equal. Skin is warm and dry. Patient is awake, alert, neurological exam is nonfocal. Course - Re-evaluation Re-evalutation: 05/24/20 20:57 Patient presents to the emergency department for evaluation. She has been having some vomiting. She is a type I diabetic. She had laboratory investigations as ordered. She was given IV fluids. She is given nausea medication, had no further emesis here. She was able to tolerate ice chips. Serial abdominal exams are benign. She has no significant electrolyte abnormalities, is not acidotic. She has a urine sample which fails to show any signs of infection at this time. Patient is concerned that her symptoms may return, she wanted to see if she could be admitted. I discussed this with the patient as well as with her primary care provider. It is agreed that she is no indications for admission at this time. We discussed appropriate diet to try and help her with her symptoms. I will send her home with some Phenergan suppositories. She is to follow-up with primary care, perhaps seek out referral to GI. She understands this. She is to return to the emergency department with worsening or new concerning symptoms of any sort. - Vital Signs Vital signs: Temp Pulse Resp BP Pulse Ox 98.3 F 101 H 20 146/86 H 100 05/24/20 14:28 05/24/20 14:28 05/24/20 14:28 05/24/20 14:28 05/24/20 14:28 - Laboratory Result Diagrams: 05/24/20 18:08 05/24/20 18:08 Laboratory results interpreted by me: 05/24/20 05/24/20 05/24/20 18:08 18:08 19:51 WBC 11.1 H Lymph % (Auto) 5.8 L Schley % (Auto) 2.5 L Absolute Neuts (auto) 10.2 H Seg Neutrophils % 91.4 H Glucose 282 H Lipase 20.6 L Urine Glucose (UA) >=500 H Urine Ketones 80 H Discharge - Discharge Clinical Impression: Nausea and vomiting Qualifiers: Vomiting type: unspecified Vomiting Intractability: non-intractable Qualified Code(s): R11.2 - Nausea with vomiting, unspecified Condition: Stable Disposition: HOME, SELF-CARE Instructions: Vomiting ([facility]) Additional Instructions: I spoke to your primary care provider. Unfortunately, there is no indication for admission at this time. Please stay hydrated with small, frequent sips of clear fluids. Avoid acidic or spicy fluids. Avoid greasy foods. When you are feeling able after 24 hours, advance slowly to a very bland boring diet. Continue Zofran or Reglan as needed for mild nausea, you can take the Phenergan suppositories as needed for severe nausea. Please note these will cause drowsiness. Follow-up with your primary care provider tomorrow, seek out po ssible referral on to gastroenterology. Return to the emergency department with worsening or new concerning symptoms of any sort. Referrals: JOSE D BUCKLEY MD [Primary Care Provider] - Follow up as needed
== END 2020-05-24 22:07 | disposition home or self-care (01) ==
LOC: ER 14:12
DX: R11.2 Nausea with vomiting, unspecified (principal); N39.0 Urinary tract infection, site not specified; E10.9 Type 1 diabetes mellitus without complications; Z79.4 Long term (current) use of insulin; Z87.891 Personal history of nicotine dependence
CPT/HCPCS: 99283; 36415; 83690; 84703; 85025; 80053; 81001; J3490; J2405; J7030

== ENCOUNTER 2020-05-25 18:52 | Inpatient (IN) | payer MEDICAID ==
[2020-05-25 21:42] LABS: ABSOLUTE MONOCYTES (AUTO) 1.1 10^3/uL (0.1-1.4); ABSOLUTE NEUT (AUTO) 12.9 10^3/uL (1.7-8.2); BASOPHILS % (AUTO) 0.1 % (0-2); HEMOGLOBIN 13.9 g/dL (12.0-15.5); LYMPHOCYTES % (AUTO) 6.7 % (13-45); MEAN CORPUSCULAR HEMOGLOBIN 31.5 pg (27.0-33.4); MEAN CORPUSCULAR HGB CONC 33.9 g/dL (32.0-36.0); MEAN CORPUSCULAR VOLUME 93 fl (80-97); MONOCYTES % (AUTO) 7.1 % (3-13); PLATELET COUNT 234 10^3/uL (150-450); RED BLOOD COUNT 4.41 10^6/uL (3.72-5.28); RED CELL DISTRIBUTION WIDTH 13.4 % (11.5-14.0); SEGMENTED NEUTROPHILS % (AUTO) 86.1 % (42-78); TOTAL CELLS COUNTED % (AUTO) 100 %
[2020-05-25 21:58] LABS: ALBUMIN 4.7 g/dL (3.5-5.0); ALKALINE PHOSPHATASE 100 U/L (38-126); ANION GAP 17 (5-19); ASPARTATE AMINO TRANSFERASE 23 U/L (14-36); BILIRUBIN,DIRECT 0.1 mg/dL (0.0-0.4); BILIRUBIN,TOTAL 0.8 mg/dL (0.2-1.3); BLOOD UREA NITROGEN 15 mg/dL (7-20); CALCIUM 9.1 mg/dL (8.4-10.2); CARBON DIOXIDE 16 mmol/L (22-30); CHLORIDE 102 mmol/L (98-107); CREATINE KINASE 90 U/L (30-135); GLUCOSE 247 mg/dL (75-110); POTASSIUM 4.6 mmol/L (3.6-5.0); TOTAL PROTEIN 8.2 g/dL (6.3-8.2)
--- NOTE | 2020-05-25 22:09 | EKG REPORT ---
SEVERITY:- ABNORMAL ECG - SINUS TACHYCARDIA RIGHT ATRIAL ABNORMALITY BORDERLINE RIGHT AXIS DEVIATION : Confirmed by: Livier Whitten MD 25-May-2020 22:09:06
[2020-05-25 22:11] LABS: CREATINE KINASE MB 0.38 ng/mL (<4.55)
[2020-05-25 22:12] LABS: TROPONIN I < 0.012 ng/mL
--- NOTE | 2020-05-25 22:45 | RADIOLOGY REPORT (SQ) ---
EXAM DESCRIPTION: XR CHEST 1 VIEW COMPLETED DATE/TME: 05/25/2020 00:00 CLINICAL HISTORY: 40 years, Female, chest pain COMPARISON: None. NUMBER OF VIEWS: Prior study from 12/16/2018 TECHNIQUE: Single frontal view of the chest was obtained portably LIMITATIONS: None. FINDINGS: Cardiac and mediastinal contours are normal in appearance. Lungs are clear. No pleural effusion or pneumothorax. IMPRESSION: No acute disease. copyright 2010 [employer]- All Rights Reserved
--- NOTE | 2020-05-25 22:49 | ER Document Report ---
ED General - General Chief Complaint: Nausea/Vomiting Stated Complaint: POSSIBLE LOW BLOOD SUGAR Time Seen by Provider: 05/25/20 22:48 Primary Care Provider: JOSE D BUCKLEY MD [Primary Care Provider] - Follow up as needed Information source: Patient Notes: Xiomara note 22 May Patient is a 40-year-old female with insulin-dependent diabetes presenting to the emergency department chief complaint of generalized abdominal pain, chills and vomiting. She reports symptoms started this morning. She denies any diarrhea, dysuria or urinary frequency. She was seen in an urgent care a few days ago and reports that she had a urine culture taken. She has not on any antibiotics currently. Constantino notes 24 May Patient is a 40-year-old female, with a history of type 1 diabetes, who presents to the emergency department for evaluation of nausea and vomiting for the second time in 24 hours. The patient was seen here yesterday. She was diagnosed with a UTI. She was sent home with Becki and Radha. She states this morning she woke, drank some orange juice, had some Calot, and started vomiting. She states that she vomited multiple times at home. She did not have a bowel movement toda y, had a normal bowel movement yesterday. She states that isolated vomiting has happened to her in the past. She has been taking her insulin. She denies any real pain. She states she did have a mild headache earlier, but that is resolved. She is still urinating. She has been taking her medications as prescribed. my notes 40 years old black female arrives with chief complaint of several days of generalized abdominal pain and vomiting more than 10 times each day. Patient is a IDDM and was seen initially for UTI but denies any diarrhea or dysuria or kidney stone history. She was seen in urgent care and urine culture was no growth. She was placed on antibiotics by [facility]. She saw Richard JIANG yesterday for similar symptoms. Patient today is mildly dehydrated and therefore Dr. Buckley was called and he admitted patient. Her CT done the prior day was positive for colitis ascending and transverse. Patient reports she has pain in her abdomen chest and back. TRAVEL OUTSIDE OF THE [place] IN LAST 30 DAYS: No - HPI Onset: Other - x 3 days Onset/Duration: Persistent, Worse Quality of pain: Achy Severity: Moderate Pain Level: 2 Associated symptoms: Body/muscle aches, Chest pain, Nausea, Vomiting. denies: Nonproductive cough, Diarrhea Exacerbated by: Movement, Food Relieved by: Denies Similar symptoms previously: No Recently seen / treated by doctor: No - Related Data Allergies/Adverse Reactions: Penicillins Allergy (Mild, Verified 05/25/20 21:32) rash Past Medical History - General Information source: Patient - Social History Smoking Status: Unknown if Ever Smoked Cigarette use (# per day): No Chew tobacco use (# tins/day): No Frequency of alcohol use: Occasional Drug Abuse: None Lives with: Family Family History: Reviewed & Not Pertinent Patient has suicidal ideation: No Patient has homicidal ideation: No Endocrine Medical History: Reports: Hx Diabetes Mellitus Type 1 Renal/ Medical History: Denies: Hx Peritoneal Dialysis GI Medical History: Reports: Hx Gastritis. Denies: Hx Hepatitis Musculoskeletal Medical History: Denies Hx Arthritis Psychiatric Medical History: Reports: Hx Depression Infectious Medical History: Denies: Hx Hepatitis Past Surgical History: Reports: Hx Section, Hx Gynecologic Surgery - colpo, Hx Tubal Ligation - Immunizations Immunizations up to date: Yes Hx Diphtheria, Pertussis, Tetanus Vaccination: Yes Review of Systems - Review of Systems Constitutional: No symptoms reported EENT: No symptoms reported Cardiovascular: No symptoms reported Respiratory: No symptoms reported Gastrointestinal: See HPI, Abdominal pain, Nausea, Vomiting. denies: Diarrhea Genitourinary: No symptoms reported Female Genitourinary: No symptoms reported Musculoskeletal: No symptoms reported Skin: No symptoms reported Hematologic/Lymphatic: No symptoms reported Neurological/Psychological: No symptoms reported Physical Exam - Vital signs Vitals: Temp Pulse Resp BP Pulse Ox 98.7 F 98 16 134/87 H 100 05/25/20 19:28 05/25/20 19:28 05/25/20 19:28 05/25/20 19:28 05/25/20 19:28 Interpretation: Tachycardic - General General appearance: Alert - HEENT Head: Normocephalic, Atraumatic Eyes: Normal Pupils: PERRL Mouth/Lips: Normal Mucous membranes: Normal Pharynx: Normal Neck: Normal - Respiratory Respiratory status: No respiratory distress Chest status: Nontender Breath sounds: Normal Chest palpation: Normal - Cardiovascular Rhythm: Regular Heart sounds: Normal auscultation Murmur: No - Abdominal Inspection: Normal Distension: No distension Bowel sounds: Hyperactive Tenderness: Tender - diffusely Organomegaly: No organomegaly - Rectal Hemorrhoids: Other - deferred - Genitourinary [place] exam: Other - deferred - Back Back: Normal - Extremities General upper extremity: Normal inspection General lower extremity: Normal inspection - Neurological Neuro grossly intact: Yes Cognition: Normal Orientation: AAOx4 Melinda Coma Scale Eye Opening: Spontaneous [place] Coma Scale Verbal: Oriented Melinda Coma Scale Motor: Obeys Commands Melinda Coma Scale Total: 15 Speech: Normal Motor strength normal: LUE, RUE, LLE, RLE Sensory: Normal - Psychological Associated symptoms: Flat affect - Skin Skin Temperature: Warm Skin Moisture: Dry Course - Vital Signs Vital signs: Temp Pulse Resp BP Pulse Ox 98.7 F 98 20 135/96 H 100 05/25/20 21:28 05/25/20 19:28 05/25/20 22:01 05/25/20 22:00 05/25/20 22:01 - Laboratory Result Diagrams: 05/25/20 21:25 05/25/20 21:25 Laboratory results interpreted by me: 05/25/20 05/25/20 21:25 21:25 WBC 15.0 H Lymph % (Auto) 6.7 L Absolute Neuts (auto) 12.9 H Seg Neutrophils % 86.1 H Sodium 134.7 L Carbon Dioxide 16 L Glucose 247 H - Diagnostic Test Radiology reviewed: Reports reviewed Critical Care Note - Critical Care Note Total time excluding time spent on procedures (mins): 90 Comments: I spoke with Dr. Buckley at 00 40 hours and he advised IMCU Discharge - Discharge Clinical Impression: colitis on ct scan, IDDM (insulin dependent diabetes mellitus), Hyperglycemia due to diabetes mellitus Vomiting Qualifiers: Vomiting type: unspecified Vomiting Intractability: non-intractable Nausea presence: with nausea Qualified Code(s): R11.2 - Nausea with vomiting, unspecified Condition: Fair Disposition: ADMITTED INPATIENT Admitting Provider: Alex Referrals: JOSE D BUCKLEY MD [Primary Care Provider] - Follow up as needed
[2020-05-25] MEDS ORDERED: NORMAL SALINE 1000 ML 1,000 ML IV ONE (22:58)
[2020-05-25] MEDS ORDERED: LEVOFLOXACIN 750 MG/D5W RTU 750 MG/150 ML RTUPB IV ONE (23:00)
[2020-05-25] MEDS: METRONIDAZOLE 500 MG/NS RTU 500 MG/100 ML RTUPB IV SCH (23:55)
[2020-05-26] MEDS: METRONIDAZOLE 500 MG/NS RTU 500 MG/100 ML RTUPB IV SCH ×4 (00:28→17:24)
[2020-05-26] MEDS ORDERED: FENTANYL CITRATE INJ/PF 100 MCG/2 ML AMPUL IV ONE (00:37)
[2020-05-26] MEDS ORDERED: PROMETHAZINE HCL INJ 25 MG/1 ML VIAL IV ONE (00:38)
[2020-05-26 02:34] LABS: PHOSPHORUS 2.9 mg/dL (2.5-4.5)
[2020-05-26 02:51] LABS: FREE T4 (FREE THYROXINE) 1.03 ng/dL (0.78-2.19)
[2020-05-26 03:05] LABS: THYROID STIMULATING HORMONE 0.5 uIU/mL (0.47-4.68)
[2020-05-26 03:14] LABS: INTERNATIONAL RATION (INR) 1.12; PROTHROMBIN TIME 14.4 SEC (11.4-15.4)
[2020-05-26 03:15] LABS: PARTIAL THROMBOPLASTIN TIME 26.7 SEC (23.5-35.8)
[2020-05-26 03:35] LABS: ANION GAP 15 (5-19); BLOOD UREA NITROGEN 14 mg/dL (7-20); CARBON DIOXIDE 13 mmol/L (22-30); CHLORIDE 106 mmol/L (98-107); GLUCOSE 252 mg/dL (75-110); POTASSIUM 4.7 mmol/L (3.6-5.0)
[2020-05-26 03:36] LABS: AMYLASE < 30 U/L (30-110)
[2020-05-26] MEDS: OXYCODONE-ACETAMINOPHEN 5-325 MG TABLET PO PRN ×2 (03:46→11:26)
[2020-05-26] MEDS: NORMAL SALINE 1000 ML 1,000 ML IV PRN ×2 (03:47→16:25)
[2020-05-26 03:54] LABS: TROPONIN I < 0.012 ng/mL
[2020-05-26 05:17] LABS: ARTERIAL BLOOD BASE EXCESS -12.6 mmol/L; ARTERIAL BLOOD H2CO3 0.91 mmol/L (1.05-1.35); ARTERIAL BLOOD HCO3 13.2 mmol/L (20-24); ARTERIAL BLOOD O2 SATURATION 97.5 % (94-98); ARTERIAL BLOOD PCO2 30.2 mmHg (35-45); ARTERIAL BLOOD PH 7.26 (7.35-7.45); ARTERIAL BLOOD PO2 110.7 mmHg (80-100); ARTERIAL BLOOD TOTAL CO2 14.1 mmol/L (21-25)
[2020-05-26 05:19] LABS: ARTERIAL BLOOD FIO2 ROOM AIR
[2020-05-26 09:27] LABS: CREATINE KINASE MB 0.52 ng/mL (<4.55)
[2020-05-26 09:32] LABS: TROPONIN I < 0.012 ng/mL
[2020-05-26] MEDS: CIPROFLOXACIN 400 MG/D5W RTU 400 MG/200 ML RTUPB IV SCH ×2 (09:43→21:57)
[2020-05-26] MEDS: ENOXAPARIN SODIUM INJ 40 MG/0.4 ML DISP.SYRIN SUBCUT SCH (09:45)
[2020-05-26] MEDS ORDERED: METOCLOPRAMIDE HCL ORAL SOLN 10 MG/10 ML UDCUP PO ONE (13:30)
[2020-05-26] MEDS ORDERED: LIDOCAINE 2% VISCOUS SOLN 15 ML UDCUP PO ONE (13:30)
[2020-05-26] MEDS ORDERED: MAG HYDROX/AL HYDROX/SIMETH SUSP 30 ML UDCUP PO ONE (13:30)
[2020-05-26 15:30] LABS: CREATINE KINASE MB 0.36 ng/mL (<4.55)
[2020-05-26 15:34] LABS: TROPONIN I < 0.012 ng/mL
[2020-05-26] MEDS ORDERED: GLUCAGON,HUMAN RECOMB 1 MG INJ IM PRN (16:30)
[2020-05-26] MEDS ORDERED: DEXTROSE 40% GEL 15 GM TUBE PO PRN (16:30)
[2020-05-26] MEDS ORDERED: DEXTROSE 50%-WATER SYRINGE 12.5 GM/25 ML DOSE IV PRN (16:30)
[2020-05-26] MEDS ORDERED: DEXTROSE 50%-WATER SYRINGE 25 GM/50 ML DOSE IV PRN (16:30)
[2020-05-26] MEDS ORDERED: DEXTROSE 40% GEL 15 GM TUBE X 2 PO PRN (16:30)
--- NOTE | 2020-05-26 16:56 | PDOC H&P ---
History of Present Illness Admission Date/PCP: 05/26/20 01:29 JOSE D BUCKLEY MD History of Present Illness: ROSE MARIE BLANKENSHIP is a 40 year old female, She daily to the emergency room for evaluation of abdominal pain nausea vomiting, this is the third ED visit she was in the emergency room on May 22, 2020 at that time she had a CAT scan of the abdomen and pelvis with IV contrast, it revealed normal liver only a geographic area of hypodensity is noted in the left hepatic lobe adjacent to the falciform ligament this indicate an area of focal fatty infiltration, the spleen, the p ancreas the gallbladder appeared normal ,the kidneys enhance symmetrically, there is no hydronephrosis or hydroureter the urinary bladder is distended showed no suspicious finding the uterus appeared to contain a fundal fibroid along his anterior aspect, best visualized on image 62, this measures a pproximately 1.8 x 1.6 cm in size . There is diffuse circumferential colonic wall thickening particularly involving the descending and transverse segments vascular structures opacified with contrast normally she was diagnosed with colitis and also fibroid she was discharged home on antibiotic.She returned back again last night with complaint of epigastric pain no nausea vomiting she was found to have leukocytosis.She has type 1 diabetes mellitus Past Medical History Endocrine Medical History: Reports: Diabetes Mellitus Type 1 Psychiatric Medical History: Reports: Depression Hematology: Reports: Anemia - with /no meds Past Surgical History Past Surgical History: Reports: 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, Section, Tubal Ligation Social History Lives with: Family Smoking Status: Former Smoker Electronic Cigarette use?: No Last Time Smoked: 1 year ago Frequency of Alcohol Use: None Hx Recreational Drug Use: No Drugs: None Hx Prescription Drug Abuse: No Family History Family History: Reviewed & Not Pertinent Parental Family History Reviewed: Yes Children Family History Reviewed: Yes Sibling(s) Family History Reviewed.: Yes Medication/Allergy Home Medications: Insulin Aspart [Novolog] 0 unit SQ .INSULIN PUMP 05/26/20 Allergies/Adverse Reactions: Penicillins Allergy (Mild, Verified 05/25/20 21:32) rash Review of Systems Constitutional: ABSENT: chills, fever(s), headache(s), weight gain, weight loss Eyes: ABSENT: visual disturbances Ears: ABSENT: hearing changes Cardiovascular: ABSENT: chest pain, dyspnea on exertion, edema, orthropnea, palpitations Respiratory: ABSENT: cough, hemoptysis Gastrointestinal: PRESENT: abdominal pain, diarrhea, heartburn, vomiting Genitourinary: ABSENT: dysuria, hematuria Musculoskeletal: ABSENT: joint swelling Integumentary: ABSENT: rash, wounds Neurological: ABSENT: abnormal gait, abnormal speech, confusion, dizziness, focal weakness, syncope Psychiatric: ABSENT: anxiety, depression, homidical ideation, suicidal ideation Endocrine: ABSENT: cold intolerance, heat intolerance, menstrual abnormalities, polydipsia, polyuria Hematologic/Lymphatic: ABSENT: easy bleeding, easy bruising, lymphadenopathy Physical Exam Vital Signs: Temp Pulse Resp BP Pulse Ox 98.8 F 92 18 110/74 99 05/26/20 15:51 05/26/20 15:51 05/26/20 15:51 05/26/20 15:51 05/26/20 15:51 Intake & Output 05/25/20 05/26/20 05/27/20 06:59 06:59 06:59 Intake Total 350 1360 Balance 350 1360 Weight 48.3 kg General appearance: PRESENT: thin Head exam: PRESENT: atraumatic, normocephalic Eye exam: PRESENT: conjunctiva pale, PERRLA Mouth exam: PRESENT: moist, tongue midline Neck exam: PRESENT: full ROM Respiratory exam: PRESENT: clear to auscultation lata Cardiovascular exam: PRESENT: RRR, +S1, +S2 Pulses: PRESENT: normal dorsalis pedis pul, +2 pedal pulses bilateral Vascular exam: PRESENT: normal capillary refill GI/Abdominal exam: PRESENT: hernia, normal bowel sounds, soft Rectal exam: PRESENT: deferred Neurological exam: PRESENT: alert, CN II-XII grossly intact Psychiatric exam: PRESENT: appropriate affect, normal mood Skin exam: PRESENT: dry, intact, warm. ABSENT: cyanosis, rash Results Laboratory Results: 05/25/20 21:25 05/26/20 02:54 05/25/20 05/25/20 05/25/20 21:25 21:25 21:25 WBC 15.0 H RBC 4.41 Hgb 13.9 Hct 41.0 MCV 93 MCH 31.5 MCHC 33.9 RDW 13.4 Plt Count 234 Seg Neutrophils % 86.1 H Carbonic Acid HCO3/H2CO3 Ratio ABG pH ABG pCO2 ABG pO2 ABG HCO3 ABG O2 Saturation ABG Base Excess FiO2 Sodium 134.7 L Potassium 4.6 Chloride 102 Carbon Dioxide 16 L Anion Gap 17 BUN 15 Creatinine 0.60 Est GFR ( Amer) > 60 Glucose 247 H Calcium 9.1 Phosphorus 2.9 Magnesium 2.0 Total Bilirubin 0.8 AST 23 Alkaline Phosphatase 100 Ammonia Total Protein 8.2 Albumin 4.7 Amylase 40 Lipase 16.1 L TSH Free T4 05/25/20 05/26/20 05/26/20 21:25 02:54 02:54 WBC RBC Hgb Hct MCV MCH MCHC RDW Plt Count Seg Neutrophils % Carbonic Acid HCO3/H2CO3 Ratio ABG pH ABG pCO2 ABG pO2 ABG HCO3 ABG O2 Saturation ABG Base Excess FiO2 Sodium 134.0 L Potassium 4.7 Chloride 106 Carbon Dioxide 13 L Anion Gap 15 BUN 14 Creatinine 0.52 Est GFR ( Amer) > 60 Glucose 252 H Calcium 8.0 L Phosphorus Magnesium Total Bilirubin AST Alkaline Phosphatase Ammonia < 8.7 L Total Protein Albumin Amylase < 30 L Lipase TSH 0.50 Free T4 1.03 05/26/20 04:50 WBC RBC Hgb Hct MCV MCH MCHC RDW Plt Count Seg Neutrophils % Carbonic Acid 0.91 L HCO3/H2CO3 Ratio 14:1 ABG pH 7.26 L ABG pCO2 30.2 L ABG pO2 110.7 H ABG HCO3 13.2 L ABG O2 Saturation 97.5 ABG Base Excess -12.6 FiO2 ROOM AIR Sodium Potassium Chloride Carbon Dioxide Anion Gap BUN Creatinine Est GFR ( Amer) Glucose Calcium Phosphorus Magnesium Total Bilirubin AST Alkaline Phosphatase Ammonia Total Protein Albumin Amylase Lipase TSH Free T4 05/25/20 05/25/20 05/26/20 21:25 21:25 02:54 Creatine Kinase 90 74 CK-MB (CK-2) 0.38 Troponin I < 0.012 05/26/20 05/26/20 05/26/20 02:54 08:30 08:30 Creatine Kinase 75 CK-MB (CK-2) 0.30 0.52 Troponin I < 0.012 < 0.012 05/26/20 05/26/20 14:10 14:10 Creatine Kinase 64 CK-MB (CK-2) 0.36 Troponin I < 0.012 Impressions: Chest X-Ray 05/25/20 00:00 IMPRESSION: No acute disease. copyright 2010 [employer]- All Rights Reserved Assessment & Plan - Diagnosis (1) Colitis Is this a current diagnosis for this admission?: Yes Plan: She is admitted for management, will treat empirically with IV antibiotic, she may require colonoscopy, she needs to be ruled out for COVID as well (2) Type I diabetes mellitus with neurological manifestations Qualifiers: Diabetes mellitus complication detail: with polyneuropathy Qualified Code (s): E10.42 - Type 1 diabetes mellitus with diabetic polyneuropathy Is this a current diagnosis for this admission?: Yes (3) Epigastric abdominal pain Is this a current diagnosis for this admission?: Yes Plan: She complains of epigastric pain she said it feels like she has to belch that s he has to remove something from the epigastrium, she is advised to use GI cocktail (4) Metabolic acidosis Is this a current diagnosis for this admission?: Yes
[2020-05-26] MEDS ORDERED: PANTOPRAZOLE SODIUM 40 MG TABLET.DR PO SCH (17:00)
[2020-05-26] MEDS: INSULIN LISPRO 100 UNIT/ML 3 ML VIAL SUBCUT SCH (21:56)
[2020-05-27] MEDS: METRONIDAZOLE 500 MG/NS RTU 500 MG/100 ML RTUPB IV SCH ×4 (01:10→17:18)
[2020-05-27] MEDS: OXYCODONE-ACETAMINOPHEN 5-325 MG TABLET PO PRN ×2 (01:33→17:24)
[2020-05-27 01:56] LABS: APPEARANCE,URINE SLIGHTLY-CLOUDY; BILIRUBIN,URINE NEGATIVE (NEGATIVE); COLOR,URINE YELLOW; GLUCOSE, URINE >=500 mg/dL (NEGATIVE); KETONES,URINE 80 mg/dL (NEGATIVE); LEUKOCYTE ESTERASE,URINE TRACE (NEGATIVE); NITRITE,URINE NEGATIVE (NEGATIVE); PROTEIN,URINE NEGATIVE (NEGATIVE); URINE SPECIFIC GRAVITY 1.013; UROBILINOGEN,URINE NEGATIVE mg/dL (<2.0)
[2020-05-27 02:34] LABS: URINE AMPHETAMINES SCREEN NEGATIVE; URINE BARBITURATES SCREEN NEGATIVE; URINE BENZODIAZEPINES SCREEN NEGATIVE; URINE COCAINE SCREEN NEGATIVE; URINE METHADONE SCREEN NEGATIVE; URINE PHENCYCLIDINE SCREEN NEGATIVE
[2020-05-27 02:37] LABS: URINE MARIJUANA (THC) SCREEN UNCONFIRMED POSITIVE
[2020-05-27] MEDS: NORMAL SALINE 1000 ML 1,000 ML IV PRN ×2 (05:30→22:04)
[2020-05-27 05:48] LABS: ABSOLUTE BASOPHILS # (AUTO) 0.1 10^3/uL (0.0-0.2); ABSOLUTE LYMPHOCYTES (AUTO) 1.4 10^3/uL (0.5-4.7); ABSOLUTE MONOCYTES (AUTO) 1.3 10^3/uL (0.1-1.4); BASOPHILS % (AUTO) 0.7 % (0-2); EOSINOPHILS % (AUTO) 0.2 % (0-6); HEMATOCRIT 38.1 % (36.0-47.0); HEMOGLOBIN 12.9 g/dL (12.0-15.5); LYMPHOCYTES % (AUTO) 12.2 % (13-45); MEAN CORPUSCULAR HEMOGLOBIN 31.4 pg (27.0-33.4); MEAN CORPUSCULAR HGB CONC 33.8 g/dL (32.0-36.0); MEAN CORPUSCULAR VOLUME 93 fl (80-97); MONOCYTES % (AUTO) 11.1 % (3-13); PLATELET COUNT 209 10^3/uL (150-450); RED BLOOD COUNT 4.11 10^6/uL (3.72-5.28); RED CELL DISTRIBUTION WIDTH 13.4 % (11.5-14.0); SEGMENTED NEUTROPHILS % (AUTO) 75.8 % (42-78); TOTAL CELLS COUNTED % (AUTO) 100 %; WHITE BLOOD COUNT 11.9 10^3/uL (4.0-10.5)
[2020-05-27 06:02] LABS: ALBUMIN 3.5 g/dL (3.5-5.0); ALKALINE PHOSPHATASE 77 U/L (38-126); ASPARTATE AMINO TRANSFERASE 16 U/L (14-36); BILIRUBIN,TOTAL 0.5 mg/dL (0.2-1.3); CHOLESTEROL 194.52 mg/dL (0-200); TOTAL PROTEIN 6.5 g/dL (6.3-8.2); TRIGLYCERIDES 161 mg/dL (<150)
[2020-05-27 06:13] LABS: DIRECT LDL 97 mg/dL (<100)
[2020-05-27 06:17] LABS: VLDL CHOLESTEROL 32.2 mg/dL (10-31)
[2020-05-27] MEDS: INSULIN LISPRO 100 UNIT/ML 3 ML VIAL SUBCUT SCH ×4 (08:33→22:01)
[2020-05-27] MEDS: ENOXAPARIN SODIUM INJ 40 MG/0.4 ML DISP.SYRIN SUBCUT SCH (09:57)
[2020-05-27] MEDS: CIPROFLOXACIN 400 MG/D5W RTU 400 MG/200 ML RTUPB IV SCH ×2 (09:57→22:01)
[2020-05-27] MEDS: LIDOCAINE 2% VISCOUS SOLN 15 ML UDCUP PO PRN (10:07)
[2020-05-27] MEDS: METOCLOPRAMIDE HCL ORAL SOLN 10 MG/10 ML UDCUP PO PRN (10:07)
[2020-05-27] MEDS: MAG HYDROX/AL HYDROX/SIMETH SUSP 30 ML UDCUP PO PRN (10:07)
--- NOTE | 2020-05-27 16:19 | PDOC PROGRESS REPORT ---
Subjective Progress Note for:: 05/27/20 Subjective:: Patient seen by the bedside, she received GI cocktail for the epigastric pain with relief of the symptoms. She may require colonoscopy at one point it could be done this admission Reason For Visit: ACUTE COLITIS,TYPE 1 S,FAILED OUTPATIENT THERAPY Physical Exam Vital Signs: Temp Pulse Resp BP Pulse Ox 98.5 F 94 16 133/87 H 100 05/27/20 11:48 05/27/20 14:00 05/27/20 11:48 05/27/20 11:48 05/27/20 11:48 Intake & Output 05/26/20 05/27/20 05/28/20 06:59 06:59 06:59 Intake Total 350 3310 Output Total 1000 Balance 350 2310 Weight 48.3 kg 48.9 kg General appearance: PRESENT: no acute distress Eye exam: PRESENT: PERRLA Respiratory exam: PRESENT: clear to auscultation lata Cardiovascular exam: PRESENT: +S1, +S2 GI/Abdominal exam: PRESENT: soft Neurological exam: PRESENT: alert Results Laboratory Results: 05/27/20 05:14 05/26/20 02:54 05/27/20 05/27/20 05/27/20 01:30 05:14 05:14 WBC 11.9 H RBC 4.11 Hgb 12.9 Hct 38.1 MCV 93 MCH 31.4 MCHC 33.8 RDW 13.4 Plt Count 209 Seg Neutrophils % 75.8 Total Bilirubin 0.5 AST 16 Alkaline Phosphatase 77 Total Protein 6.5 Albumin 3.5 Triglycerides 161 H Cholesterol 194.52 LDL Cholesterol Direct 97 VLDL Cholesterol 32.2 H HDL Cholesterol 61 Urine Color YELLOW Urine Appearance SLIGHTLY-CLOUDY Urine pH 5.0 Ur Specific [place] 1.013 Urine Protein NEGATIVE Urine Glucose (UA) >=500 H Urine Ketones 80 H Urine Blood SMALL H Urine Nitrite NEGATIVE Ur Leukocyte Esterase TRACE H Urine WBC (Auto) 2 Urine RBC (Auto) 3 05/25/20 05/25/20 05/26/20 21:25 21:25 02:54 Creatine Kinase 90 74 CK-MB (CK-2) 0.38 Troponin I < 0.012 05/26/20 05/26/20 05/26/20 02:54 08:30 08:30 Creatine Kinase 75 CK-MB (CK-2) 0.30 0.52 Troponin I < 0.012 < 0.012 05/26/20 05/26/20 14:10 14:10 Creatine Kinase 64 CK-MB (CK-2) 0.36 Troponin I < 0.012 Impressions: Chest X-Ray 05/25/20 00:00 IMPRESSION: No acute disease. copyright 2010 [employer]- All Rights Reserved Assessment & Plan - Diagnosis (1) Colitis Is this a current diagnosis for this admission?: Yes Plan: Continue present treatment consult GI (2) Type I diabetes mellitus with neurological manifestations Qualifiers: Diabetes mellitus complication detail: with polyneuropathy Qualified Code(s): E10.42 - Type 1 diabetes mellitus with diabetic polyneuropathy Is this a current diagnosis for this admission?: Yes (3) Epigastric abdominal pain Is this a current diagnosis for this admission?: Yes (4) Metabolic acidosis Is this a current diagnosis for this admission?: Yes Plan: Continue treatment - Time Time Spent with patient: 25-34 minutes Level of Care: IMCU
[2020-05-28] MEDS: METRONIDAZOLE 500 MG/NS RTU 500 MG/100 ML RTUPB IV SCH ×5 (02:05→23:23)
[2020-05-28 06:56] LABS: ABSOLUTE LYMPHOCYTES (AUTO) 1.5 10^3/uL (0.5-4.7); ABSOLUTE MONOCYTES (AUTO) 0.9 10^3/uL (0.1-1.4); ABSOLUTE NEUT (AUTO) 5.9 10^3/uL (1.7-8.2); BASOPHILS % (AUTO) 0.4 % (0-2); EOSINOPHILS % (AUTO) 0.4 % (0-6); LYMPHOCYTES % (AUTO) 18.5 % (13-45); MEAN CORPUSCULAR HEMOGLOBIN 31.6 pg (27.0-33.4); MEAN CORPUSCULAR HGB CONC 34.1 g/dL (32.0-36.0); MEAN CORPUSCULAR VOLUME 93 fl (80-97); MONOCYTES % (AUTO) 10.3 % (3-13); PLATELET COUNT 221 10^3/uL (150-450); RED CELL DISTRIBUTION WIDTH 13.5 % (11.5-14.0); SEGMENTED NEUTROPHILS % (AUTO) 70.4 % (42-78); TOTAL CELLS COUNTED % (AUTO) 100 %; WHITE BLOOD COUNT 8.3 10^3/uL (4.0-10.5)
[2020-05-28 07:24] LABS: ALBUMIN 3.4 g/dL (3.5-5.0); ALKALINE PHOSPHATASE 75 U/L (38-126); ASPARTATE AMINO TRANSFERASE 19 U/L (14-36); BILIRUBIN,TOTAL 0.6 mg/dL (0.2-1.3); TOTAL PROTEIN 6.3 g/dL (6.3-8.2)
[2020-05-28] MEDS: INSULIN LISPRO 100 UNIT/ML 3 ML VIAL SUBCUT SCH ×4 (07:57→21:49)
[2020-05-28] MEDS: NORMAL SALINE 1000 ML 1,000 ML IV PRN ×2 (07:58→23:16)
--- NOTE | 2020-05-28 08:01 | Progress Note ---
Provider Note Provider Note: Consult noted, patient admitted for epigastric pain and abnormal CT scan noted to have thickening of the transverse and descending colon area will schedule for EGD and colonoscopy while inpatient if desired will need Propofol sedation she has had a negative Covid-[address] test [address] speak to Dr Harrell if agreeable full consult to follow
[2020-05-28] MEDS ORDERED: POLYETHYLENE GLYCOL 3350 POWDER 17 GM/1 PACKET PO ONE (09:00)
[2020-05-28] MEDS: ENOXAPARIN SODIUM INJ 40 MG/0.4 ML DISP.SYRIN SUBCUT SCH (09:45)
[2020-05-28] MEDS: CIPROFLOXACIN 400 MG/D5W RTU 400 MG/200 ML RTUPB IV SCH ×2 (09:45→21:50)
--- NOTE | 2020-05-28 20:52 | PDOC PROGRESS REPORT ---
Subjective Progress Note for:: 05/28/20 Subjective:: Patient seen by the bedside, she was seen today by the Dr. Daniel HUI, she is scheduled for EGD and colonoscopy tomorrow Reason For Visit: ACUTE COLITIS,TYPE 1 S,FAILED OUTPATIENT THERAPY Physical Exam Vital Signs: Temp Pulse Resp BP Pulse Ox 98.9 F 95 10 L 123/83 100 05/28/20 16:23 05/28/20 16:23 05/28/20 16:23 05/28/20 16:23 05/28/20 16:23 Intake & Output 05/27/20 05/28/20 05/29/20 06:59 06:59 06:59 Intake Total 3310 1700 2343 Output Total 1000 0 Balance 2310 1700 2343 Weight 48.9 kg 49.9 kg 49.9 kg General appearance: PRESENT: no acute distress Eye exam: PRESENT: PERRLA Respiratory exam: PRESENT: clear to auscultation lata Cardiovascular exam: PRESENT: +S1, +S2 GI/Abdominal exam: PRESENT: soft Neurological exam: PRESENT: alert Results Laboratory Results: 05/28/20 06:24 05/26/20 02:54 05/28/20 05/28/20 06:24 06:24 WBC 8.3 RBC 4.10 Hgb 13.0 Hct 38.0 MCV 93 MCH 31.6 MCHC 34.1 RDW 13.5 Plt Count 221 Seg Neutrophils % 70.4 Total Bilirubin 0.6 AST 19 Alkaline Phosphatase 75 Total Protein 6.3 Albumin 3.4 L 05/25/20 05/25/20 05/26/20 21:25 21:25 02:54 Creatine Kinase 90 74 CK-MB (CK-2) 0.38 Troponin I < 0.012 05/26/20 05/26/20 05/26/20 02:54 08:30 08:30 Creatine Kinase 75 CK-MB (CK-2) 0.30 0.52 Troponin I < 0.012 < 0.012 05/26/20 05/26/20 14:10 14:10 Creatine Kinase 64 CK-MB (CK-2) 0.36 Troponin I < 0.012 Impressions: Chest X-Ray 05/25/20 00:00 IMPRESSION: No acute disease. 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
[2020-05-28 21:42] LABS: ALBUMIN 3.3 g/dL (3.5-5.0); ALKALINE PHOSPHATASE 72 U/L (38-126); ANION GAP 13 (5-19); ASPARTATE AMINO TRANSFERASE 19 U/L (14-36); BILIRUBIN,TOTAL 0.5 mg/dL (0.2-1.3); BLOOD UREA NITROGEN 7 mg/dL (7-20); CARBON DIOXIDE 13 mmol/L (22-30); CHLORIDE 106 mmol/L (98-107); GLUCOSE 187 mg/dL (75-110); POTASSIUM 3.7 mmol/L (3.6-5.0); TOTAL PROTEIN 6.4 g/dL (6.3-8.2)
[2020-05-29] MEDS: METRONIDAZOLE 500 MG/NS RTU 500 MG/100 ML RTUPB IV SCH ×4 (05:16→23:29)
[2020-05-29 06:14] LABS: ABSOLUTE EOSINOPHILS # (AUTO) 0.1 10^3/uL (0.0-0.6); ABSOLUTE LYMPHOCYTES (AUTO) 1.6 10^3/uL (0.5-4.7); ABSOLUTE NEUT (AUTO) 5.2 10^3/uL (1.7-8.2); BASOPHILS % (AUTO) 0.6 % (0-2); EOSINOPHILS % (AUTO) 0.8 % (0-6); HEMATOCRIT 36.1 % (36.0-47.0); HEMOGLOBIN 12.4 g/dL (12.0-15.5); MEAN CORPUSCULAR HEMOGLOBIN 31.8 pg (27.0-33.4); MEAN CORPUSCULAR HGB CONC 34.5 g/dL (32.0-36.0); MEAN CORPUSCULAR VOLUME 92 fl (80-97); MONOCYTES % (AUTO) 13.2 % (3-13); PLATELET COUNT 210 10^3/uL (150-450); RED BLOOD COUNT 3.92 10^6/uL (3.72-5.28); RED CELL DISTRIBUTION WIDTH 13.5 % (11.5-14.0); SEGMENTED NEUTROPHILS % (AUTO) 65.4 % (42-78); TOTAL CELLS COUNTED % (AUTO) 100 %; WHITE BLOOD COUNT 7.9 10^3/uL (4.0-10.5)
[2020-05-29 06:40] LABS: ALKALINE PHOSPHATASE 65 U/L (38-126); ASPARTATE AMINO TRANSFERASE 17 U/L (14-36); BILIRUBIN,TOTAL 0.5 mg/dL (0.2-1.3); TOTAL PROTEIN 5.5 g/dL (6.3-8.2)
[2020-05-29] MEDS: INSULIN LISPRO 100 UNIT/ML 3 ML VIAL SUBCUT SCH ×4 (08:51→21:43)
[2020-05-29] MEDS ORDERED: PROPOFOL INJ 200 MG/20 ML VIAL IV ONE (10:48)
--- NOTE | 2020-05-29 11:43 | PDOC CONSULTATION ---
Consultation Consult Date: 05/28/20 Provider Consulted: CHRISTIAN ROSE Consult reason:: abnormal CT scan. epigastric pain History of Present Illness Admission Date/PCP: 05/26/20 01:29 JOSE D BUCKLEY MD History of Present Illness: ROSE MARIE BLANKENSHIP is a 40 year old female patient admitted for recurrent and intermittent abdominal pain she does admit to some early satiett no melena patient states no appetite also had CT scan that showed possible thickening of the transverse to descending colon area no blood per rectum referred for GI work up while patient is being admitted will schedule for both EGD and colonoscopy will need Propofol sedation Past Medical History Endocrine Medical History: Reports: Diabetes Mellitus Type 1 GI Medical History: Denies: Hepatitis Musculoskeltal Medical History: Denies: Arthritis Psychiatric Medical History: Reports: Depression Hematology: Reports: Anemia - with /no meds Past Surgical History Past Surgical History: Reports: 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, Section, Tubal Ligation Social History Lives with: Family Smoking Status: Former Smoker Electronic Cigarette use?: No Last Time Smoked: 1 year ago Frequency of Alcohol Use: None Hx Recreational Drug Use: No Drugs: None Hx Prescription Drug Abuse: No Family History Family History: Reviewed & Not Pertinent Parental Family History Reviewed: Yes Children Family History Reviewed: Unknown Sibling(s) Family History Reviewed.: Unknown Medication/Allergy Home Medications: Insulin Aspart [Novolog] 0 unit SQ .INSULIN PUMP 05/26/20 Allergies/Adverse Reactions: Penicillins Allergy (Mild, Verified 05/25/20 21:32) rash Review of Systems Constitutional: PRESENT: weakness. ABSENT: fever(s), headache(s), night sweats Eyes: ABSENT: visual disturbances Ears: ABSENT: hearing changes Nose, Mouth, and Throat: ABSENT: mouth pain, sore throat Cardiovascular: ABSENT: edema, orthropnea, palpitations Respiratory: ABSENT: dyspnea, hemoptysis Gastrointestinal: PRESENT: nausea, vomiting. ABSENT: dysphagia, hematemesis Genitourinary: ABSENT: dysuria, hematuria Musculoskeletal: ABSENT: deformity, joint swelling Integumentary: ABSENT: pruritus, rash Neurological: ABSENT: syncope, tingling Endocrine: ABSENT: polydipsia, polyphagia, polyuria Hematologic/Lymphatic: ABSENT: easy bruising Physical Exam Vital Signs: Temp Pulse Resp BP Pulse Ox 97.9 F 97 16 131/91 H 100 05/29/20 11:15 05/29/20 11:25 05/29/20 11:25 05/29/20 11:25 05/29/20 11:25 Intake & Output 05/28/20 05/29/20 05/30/20 06:59 06:59 06:59 Intake Total 1700 2843 Output Total 0 0 Balance 1700 2843 Weight 49.9 kg 51.2 kg General appearance: PRESENT: mild distress, thin Head exam: PRESENT: atraumatic, normocephalic Eye exam: PRESENT: EOMI, PERRLA. ABSENT: nystagmus, scleral icterus Mouth exam: PRESENT: moist, neck supple Throat exam: ABSENT: tonsillar exudate, tonsillogmegaly Neck exam: ABSENT: meningismus, tenderness, thyromegaly Respiratory exam: PRESENT: symmetrical, unlabored. ABSENT: tachypnea, wheezes Cardiovascular exam: PRESENT: RRR, +S1, +S2 GI/Abdominal exam: PRESENT: soft. ABSENT: rebound, rigid, tenderness Extremities exam: ABSENT: joint swelling Musculoskeletal exam: PRESENT: full ROM Neurological exam: PRESENT: oriented to time, oriented to situation, CN II-XII grossly intact Focused psych exam: ABSENT: restlessness Skin exam: PRESENT: normal color. ABSENT: mottled, pallor, urticaria, vesicles Results Laboratory Results: 05/29/20 05:37 05/28/20 21:08 05/28/20 05/29/20 05/29/20 21:08 05:37 05:37 WBC 7.9 RBC 3.92 Hgb 12.4 Hct 36.1 MCV 92 MCH 31.8 MCHC 34.5 RDW 13.5 Plt Count 210 Seg Neutrophils % 65.4 Sodium 132.3 L Potassium 3.7 Chloride 106 Carbon Dioxide 13 L Anion Gap 13 BUN 7 Creatinine 0.55 Est GFR ( Amer) > 60 Glucose 187 H Calcium 8.0 L Total Bilirubin 0.5 0.5 AST 19 17 Alkaline Phosphatase 72 65 Total Protein 6.4 5.5 L Albumin 3.3 L 3.0 L 05/25/20 05/25/20 05/26/20 21:25 21:25 02:54 Creatine Kinase 90 74 CK-MB (CK-2) 0.38 Troponin I < 0.012 05/26/20 05/26/20 05/26/20 02:54 08:30 08:30 Creatine Kinase 75 CK-MB (CK-2) 0.30 0.52 Troponin I < 0.012 < 0.012 05/26/20 05/26/20 14:10 14:10 Creatine Kinase 64 CK-MB (CK-2) 0.36 Troponin I < 0.012 Impressions: Chest X-Ray 05/25/20 00:00 IMPRESSION: No acute disease. copyright 2010 [employer]- All Rights Reserved Assessment & Plan - Diagnosis (1) Colitis Is this a current diagnosis for this admission?: Yes Plan: ? etiology, could br due to incomplete distension will exclude colitis Risks, benefits and alternatives are discussed with the patient in detail will proceed (2) Epigastric abdominal pain Is this a current diagnosis for this admission?: Yes Plan: will need EGD as well may have PUD will schedule at the same time further recommendations to follow - Time Time Spent: 50 to 70 Minutes
--- NOTE | 2020-05-29 11:46 | Operative Report ---
Operative Report DATE OF SURGERY: 05/29/20 Operative Report: The risk, benefits and alternatives of the procedure including the risk of bleeding, perforation requiring surgery have been explained to the patient in detail and informed consent has been obtained. The patient is taken back to the endoscopy suite and placed in the left, lateral decubital position. Timeout was called. Propofol medication is administered. Rectal examination is done which did not reveal any masses, tears or fissures. An Olympus videoscope was introduced into the patient's rectum. The scope was then carefully advanced all the way to the cecum. The cecum was identified by the usual anatomical landmarks including the ileocecal valve as well as the appendiceal office. Photodocumentation is obtained. Scope was then sequentially pulled back via the various segments of the colon including the ascending colon, hepatic flexure, transverse colon, splenic flexure, descending colon and finally into the rectosigmoid portions of the colon. Retroflexion maneuver is performed. Prep is poor. Patient had not completed drinking the prep solution. The risks benefits and alternatives of the procedure explained to the patient in detail and informed consent is obtained.A GIF Olympus video scope was inserted into the patient's mouth and hypopharynx ,the esophagus is identified intubated and insufflated, the scope was then advanced through the esophagus stomach and duodenum, retroflexion maneuver is done ,the esophagus stomach and first and second portions of the duodenum examined PREOPERATIVE DIAGNOSIS: Abnormal CT scan. epigastric pain POSTOPERATIVE DIAGNOSIS: Relatively normal colonoscopy but incomplete prep. Internal hemorrhoids. Random biopsies taken in the questionable area that was reported on the CT scan to rule out microscopic colitis. Severe esophageal ulceration. Gastritis status post biopsy OPERATION: Colonoscopy with biopsy. EGD with biopsy SURGEON: CHRISTIAN ROSE ANESTHESIA: LMAC TISSUE REMOVED OR ALTERED: As noted above. COMPLICATIONS: None. ESTIMATED BLOOD LOSS: None. INTRAOPERATIVE FINDINGS: As noted above. PROCEDURE: Patient tolerated the procedure well. No immediate postprocedure complications are noted. Patient is sent back to her room in good condition. Resume previous diet as tolerated. Start her on a PPI. Negative colonoscopy. We will follow-up as outpatient.
[2020-05-29] MEDS: METOCLOPRAMIDE HCL ORAL SOLN 10 MG/10 ML UDCUP PO PRN (13:16)
[2020-05-29] MEDS: MAG HYDROX/AL HYDROX/SIMETH SUSP 30 ML UDCUP PO PRN (13:16)
[2020-05-29] MEDS: ENOXAPARIN SODIUM INJ 40 MG/0.4 ML DISP.SYRIN SUBCUT SCH (13:17)
[2020-05-29] MEDS: LIDOCAINE 2% VISCOUS SOLN 15 ML UDCUP PO PRN (13:17)
[2020-05-29] MEDS: CIPROFLOXACIN 400 MG/D5W RTU 400 MG/200 ML RTUPB IV SCH ×2 (13:17→21:42)
[2020-05-29] MEDS: OXYCODONE-ACETAMINOPHEN 5-325 MG TABLET PO PRN (19:40)
--- NOTE | 2020-05-29 20:59 | PDOC PROGRESS REPORT ---
Subjective Progress Note for:: 05/29/20 Subjective:: EGD was done demonstrated severe ulceration of the esophagus Reason For Visit: ACUTE COLITIS,TYPE 1 S,FAILED OUTPATIENT THERAPY Physical Exam Vital Signs: Temp Pulse Resp BP Pulse Ox 98.6 F 97 15 102/69 100 05/29/20 15:11 05/29/20 15:11 05/29/20 15:11 05/29/20 15:11 05/29/20 15:11 Intake & Output 05/28/20 05/29/20 05/30/20 06:59 06:59 06:59 Intake Total 1700 2843 1700 Output Total 0 0 0 Balance 1700 2843 1700 Weight 49.9 kg 51.2 kg General appearance: PRESENT: no acute distress Eye exam: PRESENT: PERRLA Respiratory exam: PRESENT: clear to auscultation lata Cardiovascular exam: PRESENT: +S1, +S2 GI/Abdominal exam: PRESENT: soft Neurological exam: PRESENT: alert Results Laboratory Results: 05/29/20 05:37 05/28/20 21:08 05/28/20 05/29/20 05/29/20 21:08 05:37 05:37 WBC 7.9 RBC 3.92 Hgb 12.4 Hct 36.1 MCV 92 MCH 31.8 MCHC 34.5 RDW 13.5 Plt Count 210 Seg Neutrophils % 65.4 Sodium 132.3 L Potassium 3.7 Chloride 106 Carbon Dioxide 13 L Anion Gap 13 BUN 7 Creatinine 0.55 Est GFR ( Amer) > 60 Glucose 187 H Calcium 8.0 L Total Bilirubin 0.5 0.5 AST 19 17 Alkaline Phosphatase 72 65 Total Protein 6.4 5.5 L Albumin 3.3 L 3.0 L 05/27/20 01:30 Clean Catch Midstream Urine Culture - Final Gardnerella Vaginalis 05/25/20 05/25/20 05/26/20 21:25 21:25 02:54 Creatine Kinase 90 74 CK-MB (CK-2) 0.38 Troponin I < 0.012 05/26/20 05/26/20 05/26/20 02:54 08:30 08:30 Creatine Kinase 75 CK-MB (CK-2) 0.30 0.52 Troponin I < 0.012 < 0.012 05/26/20 05/26/20 14:10 14:10 Creatine Kinase 64 CK-MB (CK-2) 0.36 Troponin I < 0.012 Impressions: Chest X-Ray 05/25/20 00:00 IMPRESSION: No acute disease. 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 Qualifiers: Diabetes mellitus complication detail: with polyneuropathy Qualified Co de(s): E10.42 - Type 1 diabetes mellitus with diabetic polyneuropathy Is this a current diagnosis for this admission?: Yes (3) Epigastric abdominal pain Is this a current diagnosis for this admission?: Yes (4) Metabolic acidosis Is this a current diagnosis for this admission?: Yes (5) Esophageal ulceration Qualifiers: Esophageal ulcer bleeding: without bleeding Qualified Code(s): K22.10 - Ulcer of esophagus without bleeding Is this a current diagnosis for this admission?: Yes Plan: Start Carafate - Time Time Spent with patient: 25-34 minutes Level of Care: IMCU
[2020-05-29] MEDS: NORMAL SALINE 1000 ML 1,000 ML IV PRN (21:42)
[2020-05-29] MEDS: SUCRALFATE 1 GM TABLET PO SCH (21:42)
[2020-05-30] MEDS: METRONIDAZOLE 500 MG/NS RTU 500 MG/100 ML RTUPB IV SCH ×2 (05:10→13:33)
[2020-05-30] MEDS: SUCRALFATE 1 GM TABLET PO SCH ×2 (08:19→10:24)
[2020-05-30] MEDS: INSULIN LISPRO 100 UNIT/ML 3 ML VIAL SUBCUT SCH ×2 (08:20→13:33)
[2020-05-30] MEDS: ENOXAPARIN SODIUM INJ 40 MG/0.4 ML DISP.SYRIN SUBCUT SCH (10:23)
[2020-05-30] MEDS: CIPROFLOXACIN 400 MG/D5W RTU 400 MG/200 ML RTUPB IV SCH (10:24)
[2020-05-30] MEDS: NORMAL SALINE 1000 ML 1,000 ML IV PRN (13:34)
[2020-05-30] MEDS: LIDOCAINE 2% VISCOUS SOLN 15 ML UDCUP PO PRN (14:56)
[2020-05-30] MEDS: METOCLOPRAMIDE HCL ORAL SOLN 10 MG/10 ML UDCUP PO PRN (14:56)
[2020-05-30] MEDS: MAG HYDROX/AL HYDROX/SIMETH SUSP 30 ML UDCUP PO PRN (14:56)
[2020-05-30 15:04] VITALS: BP 134/87
--- NOTE | 2020-05-30 16:40 | PDOC DISCHARGE SUMMARY ---
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 Home Medications: Insulin Aspart [Novolog] 0 unit SQ .INSULIN PUMP 05/26/20 Insulin Lispro [Humalog Insulin (Lispro) 100 unit/mL] 0 - 12 unit SUBCUT ACHS unit 05/30/20 Omeprazole 40 mg PO DAILY #90 capsule. 05/30/20 Sucralfate [Carafate 1 gm Tablet] 1 gm PO ACHS #120 tablet 05/30/20 History of Present Illiness History of Present Illness: ROSE MARIE BLANKENSHIP is a 40 year old female, She daily to the emergency room for evaluation of abdominal pain nausea vomiting, this is the third ED visit she was in the emergency room on May 22, 2020 at that time she had a CAT scan of the abdomen and pelvis with IV contrast, it revealed normal liver only a geographic area of hypodensity is noted in the left hepatic lobe adjacent to the falciform ligament this indicate an area of focal fatty infiltration, the spleen, the pancreas the gallbladder appeared normal ,the kidneys enhance symmetrically, there is no hydronephrosis or hydroureter the urinary bladder is distended showed no suspicious finding the uterus appeared to contain a fundal fibroid along his anterior aspect, best visualized on image 62, this measures approximately 1.8 x 1.6 cm in size . There is diffuse circumferential colonic wall thickening particularly involving the descending and transverse segments vascular structures opacified with contrast normally she was diagnosed with colitis and also fibroid she was discharged home on antibiotic.She returned back again last night with complaint of epigastric pain no nausea vomiting she was found to have leukocytosis.She has type 1 diabetes mellitus Hospital Course Hospital Course: Patient was admitted for the management of abdominal pain, epigastric pain, diarrhea, leukocytosis, colitis. She was empirically treated with IV antibiotic for presumptive colitis on the basis of the CAT scan findings. She was negative for SARS-CoV-2 infection consultation was requested from GI Dr. Morgan, she underwent EGD and colonoscopy, she was found to have severe ulceration of the esophagus distally colonoscopy did not demonstrate any significant pathology though the prep was not extremely good but for the most part according to Dr. Madrid it was negative,She has underlining type 1 diabetes mellitus this was relatively controlled on this admission Physical Exam Vital Signs: Temp Pulse Resp BP Pulse Ox 99.1 F 91 16 134/87 H 100 05/30/20 15:01 05/30/20 15:01 05/30/20 15:01 05/30/20 15:01 05/30/20 15:01 Intake & Output 05/29/20 05/30/20 05/31/20 06:59 06:59 06:59 Intake Total 2843 2200 1620 Output Total 0 0 Balance 2843 2200 1620 Weight 51.2 kg 51 kg General appearance: PRESENT: no acute distress Eye exam: PRESENT: PERRLA Respiratory exam: PRESENT: clear to auscultation lata Cardiovascular exam: PRESENT: +S1, +S2 GI/Abdominal exam: PRESENT: soft Neurological exam: PRESENT: alert Results Laboratory Results: WBC 7.9 10^3/uL (4.0-10.5) 05/29/20 05:37 RBC 3.92 10^6/uL (3.72-5.28) 05/29/20 05:37 Hgb 12.4 g/dL (12.0-15.5) 05/29/20 05:37 Hct 36.1 % (36.0-47.0) 05/29/20 05:37 MCV 92 fl (80-97) 05/29/20 05:37 MCH 31.8 pg (27.0-33.4) 05/29/20 05:37 MCHC 34.5 g/dL (32.0-36.0) 05/29/20 05:37 RDW 13.5 % (11.5-14.0) 05/29/20 05:37 Plt Count 210 10^3/uL (150-450) 05/29/20 05:37 Lymph % (Auto) 20.0 % (13-45) 05/29/20 05:37 [place] % (Auto) 13.2 % (3-13) H 05/29/20 05:37 Eos % (Auto) 0.8 % (0-6) 05/29/20 05:37 Baso % (Auto) 0.6 % (0-2) 05/29/20 05:37 Absolute Neuts (auto) 5.2 10^3/uL (1.7-8.2) 05/29/20 05:37 Absolute Lymphs (auto) 1.6 10^3/uL (0.5-4.7) 05/29/20 05:37 Absolute Monos (auto) 1.0 10^3/uL (0.1-1.4) 05/29/20 05:37 Absolute Eos (auto) 0.1 10^3/uL (0.0-0.6) 05/29/20 05:37 Absolute Basos (auto) 0.0 10^3/uL (0.0-0.2) 05/29/20 05:37 Seg Neutrophils % 65.4 % (42-78) 05/29/20 05:37 PT 14.4 SEC (11.4-15.4) 05/26/20 02:54 INR 1.12 05/26/20 02:54 APTT 26.7 SEC (23.5-35.8) 05/26/20 02:54 Carbonic Acid 0.91 mmol/L (1.05-1.35) L 05/26/20 04:50 HCO3/H2CO3 Ratio 14:1 05/26/20 04:50 ABG pH 7.26 (7.35-7.45) L 05/26/20 04:50 ABG pCO2 30.2 mmHg (35-45) L 05/26/20 04:50 ABG pO2 110.7 mmHg (80-100) H 05/26/20 04:50 ABG HCO3 13.2 mmol/L (20-24) L 05/26/20 04:50 ABG Total CO2 14.1 mmol/L (21-25) L 05/26/20 04:50 ABG O2 Saturation 97.5 % (94-98) 05/26/20 04:50 ABG Base Excess -12.6 mmol/L 05/26/20 04:50 FiO2 ROOM AIR 05/26/20 04:50 Sodium 132.3 mmol/L (137-145) L 05/28/20 21:08 Potassium 3.7 mmol/L (3.6-5.0) 05/28/20 21:08 Chloride 106 mmol/L (98-107) 05/28/20 21:08 Carbon Dioxide 13 mmol/L (22-30) L 05/28/20 21:08 Anion Gap 13 (5-19) 05/28/20 21:08 BUN 7 mg/dL (7-20) 05/28/20 21:08 Creatinine 0.55 mg/dL (0.52-1.25) 05/28/20 21:08 Est GFR ( Amer) > 60 (>60) 05/28/20 21:08 Est GFR (MDRD) Non-Af > 60 (>60) 05/28/20 21:08 Glucose 187 mg/dL (75-110) H 05/28/20 21:08 POC Glucose 246 mg/dL (70-110) H 05/30/20 11:36 Hemoglobin A1c % 8.7 % (4.7-6.0) H 05/27/20 05:14 Calcium 8.0 mg/dL (8.4-10.2) L 05/28/20 21:08 Phosphorus 2.9 mg/dL (2.5-4.5) 05/25/20 21:25 Magnesium 2.0 mg/dL (1.6-2.3) 05/25/20 21:25 Total Bilirubin 0.5 mg/dL (0.2-1.3) 05/29/20 05:37 Direct Bilirubin 0.0 mg/dL (0.0-0.4) 05/29/20 05:37 Neonat Total Bilirubin Not Reportable 05/29/20 05:37 Neonat Direct Bilirubin Not Reportable 05/29/20 05:37 Neonat Indirect Bili Not Reportable 05/29/20 05:37 AST 17 U/L (14-36) 05/29/20 05:37 ALT 11 U/L (<35) 05/29/20 05:37 Alkaline Phosphatase 65 U/L (38-126) 05/29/20 05:37 Ammonia < 8.7 umol/L (9-33) L 05/26/20 02:54 Creatine Kinase 64 U/L (30-135) 05/26/20 14:10 CK-MB (CK-2) 0.36 ng/mL (<4.55) 05/26/20 14:10 Troponin I < 0.012 ng/mL 05/26/20 14:10 Total Protein 5.5 g/dL (6.3-8.2) L 05/29/20 05:37 Albumin 3.0 g/dL (3.5-5.0) L 05/29/20 05:37 Triglycerides 161 mg/dL (<150) H 05/27/20 05:14 Cholesterol 194.52 mg/dL (0-200) 05/27/20 05:14 LDL Cholesterol Direct 97 mg/dL (<100) 05/27/20 05:14 VLDL Cholesterol 32.2 mg/dL (10-31) H 05/27/20 05:14 HDL Cholesterol 61 mg/dL (>40) 05/27/20 05:14 Amylase < 30 U/L (30-110) L 05/26/20 02:54 Lipase 16.1 U/L (23-300) L 05/25/20 21:25 TSH 0.50 uIU/mL (0.47-4.68) 05/25/20 21:25 Free T4 1.03 ng/dL (0.78-2.19) 05/25/20 21:25 Urine Color YELLOW 05/27/20 01:30 Urine Appearance SLIGHTLY-CLOUDY 05/27/20 01:30 Urine pH 5.0 (5.0-9.0) 05/27/20 01:30 Ur Specific [place] 1.013 05/27/20 01:30 Urine Protein NEGATIVE mg/dL (NEGATIVE) 05/27/20 01:30 Urine Glucose (UA) >=500 mg/dL (NEGATIVE) H 05/27/20 01:30 Urine Ketones 80 mg/dL (NEGATIVE) H 05/27/20 01:30 Urine Blood SMALL (NEGATIVE) H 05/27/20 01:30 Urine Nitrite NEGATIVE (NEGATIVE) 05/27/20 01:30 Urine Bilirubin NEGATIVE (NEGATIVE) 05/27/20 01:30 Urine Urobilinogen NEGATIVE mg/dL (<2.0) 05/27/20 01:30 Ur Leukocyte Esterase TRACE (NEGATIVE) H 05/27/20 01:30 Urine WBC (Auto) 2 /HPF 05/27/20 01:30 Urine RBC (Auto) 3 /HPF 05/27/20 01:30 Urine Bacteria (Auto) TRACE /HPF 05/27/20 01:30 Squamous Epi Cells Auto 7 /HPF 05/27/20 01:30 Urine Mucus (Auto) OCC /LPF 05/27/20 01:30 Urine Ascorbic Acid NEGATIVE (NEGATIVE) 05/27/20 01:30 Urine Opiates Screen NEGATIVE 05/27/20 01:30 Urine Methadone Screen NEGATIVE 05/27/20 01:30 Ur Barbiturates Screen NEGATIVE 05/27/20 01:30 Ur Phencyclidine Scrn NEGATIVE 05/27/20 01:30 Ur Amphetamines Screen NEGATIVE 05/27/20 01:30 U Benzodiazepines Scrn NEGATIVE 05/27/20 01:30 Urine Cocaine Screen NEGATIVE 05/27/20 01:30 U Marijuana (THC) Screen UNCONFIRMED POSITIVE 05/27/20 01:30 SARS-CoV-2 (PCR) NEGATIVE (NEGATIVE) 05/26/20 17:05 05/25/20 05/26/20 05/26/20 21:25 02:54 08:30 CK-MB (CK-2) 0.38 0.30 0.52 Troponin I < 0.012 < 0.012 < 0.012 05/26/20 14:10 CK-MB (CK-2) 0.36 Troponin I < 0.012 Impressions: Chest X-Ray 05/25/20 00:00 IMPRESSION: No acute disease. copyright 2010 [employer]- All Rights Reserved Stroke Is this a Stroke Patient?: No Acute Heart Failure - Is this a Heart Failure Patient?: No
== END 2020-05-30 17:34 | disposition home or self-care (01) | DRG 392 ==
LOC: ER 18:52 → EH 05-26 01:29 → 5 05-26 03:10 → 3W 05-27 15:19
PROVIDERS: ADMIT Internal Medicine; ATTEND Internal Medicine
PROC: 0DDE8ZX Extraction of Large Intestine, Via Natural or Artificial Opening Endoscopic, Diagnostic (ICD-10-PCS; principal; 2020-05-29 12:00)
PROC: 0DD78ZX Extraction of Stomach, Pylorus, Via Natural or Artificial Opening Endoscopic, Diagnostic (ICD-10-PCS; 2020-05-29 12:00)
DX: K52.9 Noninfective gastroenteritis and colitis, unspecified (principal); N39.0 Urinary tract infection, site not specified; E87.2 Acidosis; K22.10 Ulcer of esophagus without bleeding; K64.8 Other hemorrhoids; R11.2 Nausea with vomiting, unspecified; E10.42 Type 1 diabetes mellitus with diabetic polyneuropathy; E10.65 Type 1 diabetes mellitus with hyperglycemia; Z03.818 Encounter for observation for suspected exposure to other biological agents ruled out
CPT/HCPCS: 36415; 43239; 45380; 71045; 80048; 80053; 80061; 80076; 80307; 81001; 813; 82140; 82150; 82550; 82553; 82803; 82962; 83036; 83690; 83735; 84100; 84439; 84443; 84484; 85025; 85610; 85730; 87040; 87070; 87086; 87088; 87635; 88305; 93005; 93010; 99285; C9803; J0744; J1650; J1815; J1956; J2550; J2704; J3010; J3490; J7030